=== PATIENT | female | born 1970 | race American Indian/Alaskan Native ===

== ENCOUNTER 2016-11-13 10:44 | Outpatient (CLI) | payer MEDICAID ==
--- NOTE | 2016-11-13 11:56 | Fluoroscopy Report ---
UPPER GI INDICATION: Dyspepsia. Lap Band in 2015. COMPARISON: 02/27/2015 upper GI report; images not retrievable at this time. FINDINGS: Upper GI performed. Patient swallowed thick and thin barium without any difficulty and also tolerated effervescent granules well. Claim Clerk view demonstrates normal appearance of the lap band and its connector tubing leading to the port overlying the L3 vertebral body in the midline. Nonobstructive bowel gas pattern. Colonic stool/possible constipation. Lower thoracic and lower lumbar degenerative changes. Bilateral SI joint sclerosis, more so along the iliac aspects. Small left pelvic phlebolith. Left iliac vein stent. Esophagus is normal in course and caliber without focal mucosal abnormality or abnormal peristalsis. No demonstratable hiatal hernia or gastroesophageal reflux. Prompt passage of contrast through the lap band into the opacified stomach without evidence of peptic ulcer disease. Normal duodenal bulb and C-loop. CONCLUSION: Normal upper GI exam, as described. Lap band correlation may also be obtained clinically. Thank you for the opportunity to participate in this patient's care.
== END 2016-11-13 10:45 | disposition home or self-care (01) ==
LOC: FLUORO 10:44
PROVIDERS: ATTEND Specialist
DX: K30 Functional dyspepsia (principal); I10 Essential (primary) hypertension
CPT/HCPCS: 74247

== ENCOUNTER 2017-01-04 06:14 | Day surgery (SDC) | payer MEDICAID ==
[2017-01-04] MEDS ORDERED: WATER FOR IRRIG STERILE IR ONE (07:33)
--- NOTE | 2017-01-04 07:39 | Anesthesia Day of Surgery ---
Anesthesia Day of Surgery - Day of Surgery Patient Examined: Yes Patient H&P Reviewed: Yes Patient is NPO: Yes Beta Blockers: Yes
--- NOTE | 2017-01-04 07:41 | Anesthesia Consultation ---
Anesthesia Consult and Med Hx Date of service: 01/04/17 - Airway Anesthetic Teeth Evaluation: Good ROM Head & Neck: Adequate Mental/Hyoid Distance: Adequate Mallampati Class: Class I Intubation Access Assessment: Good - Pulmonary Exam CTA: Yes - Cardiac Exam Cardiac Exam: RRR - Pre-Operative Health Status ASA Pre-Surgery Classification: ASA3 Proposed Anesthetic Plan: MAC - Pulmonary Hx Smoking: No Hx Sleep Apnea: Yes (doing sleep study on 01/08/17) - Cardiovascular System Hx Hypertension: Yes (metoprolol, losartan/HCTZ) Hx Coronary Artery Disease: Yes Hx Heart Attack/AMI: Yes (August 2016, last saw diesel motor mechanic a month ago for follow up) - Other Systems Hx Obesity: Yes
[2017-01-04] MEDS ORDERED: NACL 0.9% 1000 ML 1,000 ML IV SCH (08:00)
[2017-01-04 08:45] VITALS: BP 179/118
== END 2017-01-04 06:15 | disposition home or self-care (01) ==
LOC: GIO 06:14
PROVIDERS: ATTEND Surgery
DX: K21.9 Gastro-esophageal reflux disease without esophagitis (principal); I10 Essential (primary) hypertension; M06.9 Rheumatoid arthritis, unspecified; Z98.84 Bariatric surgery status; Z98.890 Other specified postprocedural states; Z79.899 Other long term (current) drug therapy; Z79.82 Long term (current) use of aspirin; Z88.8 Allergy status to other drugs, medicaments and biological substances; Z53.8 Procedure and treatment not carried out for other reasons
CPT/HCPCS: J7030

== ENCOUNTER 2017-01-22 06:37 | Day surgery (SDC) | payer MEDICAID ==
[2017-01-22] MEDS ORDERED: NACL 0.9% 1000 ML 1,000 ML IV SCH (08:00)
[2017-01-22] MEDS ORDERED: NORMODYNE IV ONE (08:02)
[2017-01-22] MEDS ORDERED: DIPRIVAN 10 MG/ML IV ONE (08:22)
[2017-01-22] MEDS ORDERED: APRESOLINE ONE (08:30)
--- NOTE | 2017-01-22 08:32 | Anesthesia Consultation ---
Anesthesia Consult and Med Hx Date of service: 01/22/17 - Airway Anesthetic Teeth Evaluation: Poor (missing rt upper canine) ROM Head & Neck: Adequate Mental/Hyoid Distance: Adequate Mallampati Class: Class II Intubation Access Assessment: Probably Good - Pulmonary Exam CTA: Yes - Cardiac Exam Cardiac Exam: RRR - Pre-Operative Health Status ASA Pre-Surgery Classification: ASA3 Proposed Anesthetic Plan: MAC - Pulmonary Hx Smoking: No Hx Sleep Apnea: Yes (on O2 2L at night, CPAP pending) - Cardiovascular System Hx Hypertension: Yes Hx Coronary Artery Disease: Yes Hx Heart Attack/AMI: Yes (08/18) Hx Percutaneous Transluminal Coronary Angioplasty (PTCA): No - Central Nervous System Hx Neuromuscular Disorder: Yes (RA) Hx Seizures: No CVA: No - Endocrine Hx Renal Disease: No Hx Liver Disease: No Hx Non-Insulin Dependent Diabetes: No - Other Systems Hx Obesity: Yes - Additional Comments Anesthesia Medical History Comments: NAC
--- NOTE | 2017-01-22 08:32 | Anesthesia Day of Surgery ---
Anesthesia Day of Surgery - Day of Surgery Patient Examined: Yes Patient H&P Reviewed: Yes Patient is NPO: Yes
--- NOTE | 2017-01-22 08:41 | Discharge Summary ---
Providers - Providers Date of discharge: 01/22/17 Attending physician: TREVOR RUIZ Hospitalization Condition: Good Procedures: EGD, biopsy Hospital course: 46 F had an EGD to evaluate her gastric band due to abdominal discomfort. Disposition: DC-01 TO HOME OR SELFCARE Core Measure Documentation - Palliative Care Palliative Care/ Comfort Measures: Not Applicable - Core Measures Any of the following diagnoses?: none Exam - Physical Exam Narrative exam: no change from preop - Constitutional Vitals: Temp Pulse Resp BP Pulse Ox 97.6 F 68 14 189/121 100 01/22/17 08:06 01/22/17 08:06 01/22/17 08:06 01/22/17 08:06 01/22/17 08:06 Plan Activity: no restrictions Diet: other (high protien)
--- NOTE | 2017-01-22 08:54 | Operative Report ---
Operative Report Operative Report: OPERATIVE REPORT - EGD DATE 01/22/17 SURGERY: Upper endoscopy. SURGEON: Mariluz Hurley M.D. LOCK AND DAM REPAIRER: n/a PROCEDURE: 1. EGD, 2. gastric mucosal biopsy PRE OP DX: epigastric pain POST OP DX: normal banded gastric anatomy TYPE OF ANESTHESIA: MAC. ESTIMATED BLOOD LOSS: None. COMPLICATIONS: None. SPECIMENS REMOVED: antral mucosal biopsy FINDINGS: 1. Small hiatal hernia. 2. Otherwise, normal esophagus, stomach and first portion of duodenum. INDICATIONS:INDICATION FOR PROCEDURE: Patient is a 46-year-old female with a history of gastric banding who complains of epigastric pain. she is here to be evaluated for the etiology of her pain. PROCEDURE DETAILS: After consent was reviewed, patient was taken back to the operating room where patient was placed in the left lateral decubitus position and a bite block was placed in the mouth. After a time-out was called, MAC anesthesia was initiated. I then passed the endoscope into her oropharynx, into her esophagus, visualized the entire esophagus, which was all within normal limits. Once past the z-line there was an expected proximal stomach narrowing from external compression of the band. I then visualized the stomach and the first portion of the duodenum and there were no abnormalities I could clearly visualize. I then retroflexed the scope in the stomach and visualized the underside of the banded portion and could so no signs of band erosion or other pathology. A cold biopsy was taken of the antral mucosal to send pathology to rule h. pylori, I then desufflated the stomach and removed the endoscope. Patient tolerated procedure well and was transferred to recovery room in good and stable condition.
[2017-01-22] MEDS ORDERED: XYLOCAINE MPF 2% ONE (09:00)
[2017-01-22 10:24] VITALS: BP 156/108
--- NOTE | 2017-01-22 10:59 | Post Anesthesia Evaluation ---
- Post Anesthesia Evaluation Patient Participated: Yes Airway Patent: Yes Stable Respiratory Function: Yes Nausea/Vomiting: No Temp > 96.8F: Yes Pain Manageable: Yes Adequeate Hydration: Yes Anesthesia Complications: No
== END 2017-01-22 06:38 | disposition home or self-care (01) ==
LOC: GIO 06:37
PROVIDERS: ATTEND Surgery
DX: K44.9 Diaphragmatic hernia without obstruction or gangrene (principal); I10 Essential (primary) hypertension; G47.33 Obstructive sleep apnea (adult) (pediatric); I25.10 Atherosclerotic heart disease of native coronary artery without angina pectoris; M06.9 Rheumatoid arthritis, unspecified; I25.2 Old myocardial infarction; E66.9 Obesity, unspecified; Z68.39 Body mass index [BMI] 39.0-39.9, adult; Z99.81 Dependence on supplemental oxygen; Z98.84 Bariatric surgery status; Z88.5 Allergy status to narcotic agent; Z88.8 Allergy status to other drugs, medicaments and biological substances; Z79.899 Other long term (current) drug therapy; Z79.82 Long term (current) use of aspirin
CPT/HCPCS: 43239; 88305; 88342; 96374; J0360; J2704; J7030

== ENCOUNTER 2017-05-17 20:50 | Inpatient (IN) | payer MEDICAID ==
[2017-05-17] MEDS ORDERED: ZOFRAN IV ONE (21:45)
[2017-05-17] MEDS ORDERED: MORPHINE IV ONE (21:45)
[2017-05-17] MEDS ORDERED: NITRO-BID 2% TP ONE (21:45)
[2017-05-17] MEDS ORDERED: ASPIRIN PO ONE (21:46)
--- NOTE | 2017-05-17 21:46 | Emergency Department Report ---
HPI - General Chief Complaint: Chest Pain Time Seen by Provider: 05/17/17 21:30 - HPI HPI: Room 7 The patient is a 46-year-old female presenting with a chief complaint chest pain. Patient states at approximately 17:00 she developed throbbing substernal chest pain associated with shortness of breath nausea vomiting. Patient denies diaphoresis. The patient states she has a history of fibromyalgia and took a new medication, Cymbalta, at 13:00. The patient states she was asymptomatic until approximately 17:00. The patient gives her pain a score of 9/10 Location: Chest, see above Duration: Intermittent since 17:00 Quality: Throbbing Severity: 9/10 Modifying factors: [see above] Context: [see above] Mode of transportation: Unknown ED Past Medical Hx - Past Medical History Hx Hypertension: Yes Hx Heart Attack/AMI: Yes (08/18) - Surgical History Additional Surgical History: lap band 2014, carpal tunnel surgery, bilateral tubal ligation, skin graft - Family History Family history: no significant - Social History Smoking Status: Never Smoker Substance Use Type: None (denies illicit drug use), Alcohol (occasional) - Medications Home Medications: Home Medications Medication Instructions Recorded Confirmed Last Taken Type Aspirin [Aspirin TAB] 325 mg PO QDAY 02/27/15 01/22/17 01/19/17 History Carvedilol [Coreg] 25 mg PO BID 02/27/15 01/22/17 1 Day Ago History ~02/26/15 Furosemide [Lasix TAB] 40 mg PO QDAY 02/27/15 01/22/17 1 Day Ago History ~02/26/15 Omeprazole [PriLOSEC] 20 mg PO QDAY 02/27/15 01/22/17 1 Day Ago History ~02/26/15 Potassium Chloride [K-Dur] 20 meq PO QDAY 02/27/15 01/22/17 1 Day Ago History ~02/26/15 Valsartan [Diovan] 40 mg PO DAILY 02/27/15 01/22/17 1 Day Ago History ~02/26/15 Hydrochlorothiazide 25 mg PO DAILY 01/04/17 01/22/17 01/20/17 History Losartan 100 mg PO DAILY 01/04/17 01/22/17 01/22/17 History Metoprolol 100 mg PO DAILY 01/04/17 01/22/1717 History ED Review of Systems ROS: Stated complaint: CP Other details as noted in HPI Constitutional: denies: diaphoresis Respiratory: shortness of breath Cardiovascular: chest pain Gastrointestinal: nausea, vomiting Neurological: headache Physical Exam - Physical Exam Vital Signs: Vital Signs 05/17/17 21:08 Temperature 98.1 F Pulse Rate 89 Respiratory 18 Rate Blood Pressure 203/120 O2 Sat by Pulse 100 Oximetry Physical Exam: GENERAL: The patient is well-developed well-nourished female lying on stretcher not appearing to be in acute distress. [] HEENT: Normocephalic. Atraumatic. Extraocular motions are intact. Patient has moist mucous membranes. NECK: Supple. Trachea midline CHEST/LUNGS: Clear to auscultation. There is no respiratory distress noted. HEART/CARDIOVASCULAR: Regular. There is no tachycardia. There is no gallop rub or murmur. ABDOMEN: Abdomen is soft, nontender. Patient has normal bowel sounds. There is no abdominal distention. SKIN: There is no rash. There is no edema. There is no diaphoresis. NEURO: The patient is awake, alert, and oriented. The patient is cooperative. The patient has normal speech MUSCULOSKELETAL: There is no evidence of acute injury. ED Course Vital Signs 05/17/17 21:08 Temperature 98.1 F Pulse Rate 89 Respiratory 18 Rate Blood Pressure 203/120 O2 Sat by Pulse 100 Oximetry ED Medical Decision Making - Lab Data Result diagrams: 05/17/17 Unknown 05/17/17 Unknown Laboratory Tests 05/17/17 05/17/17 Unknown Unknown WBC 7.9 RBC 7.02 H Hgb 15.8 H Hct 49.7 H MCV 71 L MCH 23 L MCHC 32 RDW 18.9 H Plt Count 670 H Lymph % (Auto) 22.8 [place] % (Auto) 8.7 H Eos % (Auto) 7.5 H Baso % (Auto) 1.3 Lymph # 1.8 [place] # 0.7 Eos # 0.6 H Baso # 0.1 Seg Neutrophils % 59.7 Seg Neutrophils # 4.7 Sodium 138 Potassium 4.7 Chloride 95.3 L Carbon Dioxide 28 Anion Gap 19 BUN 15 Creatinine 1.1 Estimated GFR > 60 BUN/Creatinine Ratio 14 Glucose 106 H Calcium 9.9 Total Creatine Kinase 66 CK-MB (CK-2) 1.3 CK-MB (CK-2) Rel Index 1.9 Troponin T < 0.010 - EKG Data -: EKG Interpreted by Me EKG shows normal: sinus rhythm Rate: normal - EKG Data When compared to previous EKG there are: no significant change Interpretation: nonspecific ST-T wave cullen (T-wave inversion in lead V2) - Radiology Data Radiology results: image reviewed (chest x-ray) interpreted by me: Chest x-ray-no focal infiltrates, no pneumothorax - Differential Diagnosis ACS, GERD, pericarditis Critical care attestation.: If time is entered above; I have spent that time in minutes in the direct care of this critically ill patient, excluding procedure time. ED Disposition Clinical Impression: Chest pain Disposition: DC-09 OP ADMIT IP TO THIS HOSP Is pt being admited?: Yes Does the pt Need Aspirin: Yes Condition: Fair Instructions: Chest Pain (ED) Referrals: PRIMARY CARE, [Primary Care Provider] - 3-5 Days Time of Disposition: 23:04 (hospitalist paged (Dr. Patricia Rzea))
[2017-05-17 22:02] LABS: Basophils % (Auto) 1.3 % (0.0-1.8); Eosinophils % (Auto) 7.5 % (0.0-4.3); Hematocrit 49.7 % (30.3-42.9); Hemoglobin 15.8 gm/dl (10.1-14.3); Mean Corpuscular HGB Conc 32 % (30-34); Mean Corpuscular Volume 71 fl (79-97); Platelet Count 670 K/mm3 (140-440); Red Blood Count 7.02 M/mm3 (3.65-5.03); Red Cell Distribution Width 18.9 % (13.2-15.2); White Blood Count 7.9 K/mm3 (4.5-11.0)
[2017-05-17 22:12] LABS: Mean Corpuscular Hemoglobin 23 pg (28-32)
[2017-05-17 22:20] LABS: Creatine Kinase MB 1.3 ng/mL (0.0-4.0)
[2017-05-17 22:21] LABS: Anion Gap 19 mmol/L; BUN/Creatinine Ratio 14; Blood Urea Nitrogen 15 mg/dL (7-17); Calcium 9.9 mg/dL (8.4-10.2); Carbon Dioxide 28 mmol/L (22-30); Chloride 95.3 mmol/L (98-107); Creatine Kinase 66 units/L (30-135); Glucose 106 mg/dL (65-100); Potassium 4.7 mmol/L (3.6-5.0); Sodium 138 mmol/L (137-145)
--- NOTE | 2017-05-17 22:38 | XRay Report ---
FINAL REPORT EXAM: XR CHEST 1V AP HISTORY: chest pain TECHNIQUE: Frontal portable chest x-ray Comparison: None FINDINGS: Heart size is upper limits normal. There are hazy bilateral ill-defined apparent infiltrates part of which may be related to the patient's body habitus. Costophrenic angles are sharp laterally. IMPRESSION: Possible ill-defined infiltrates versus incomplete penetration due to patient's body habitus. Recommend two view chest or at least a PA chest when able.
[2017-05-17] MEDS ORDERED: CATAPRES ONE (23:00)
[2017-05-17] MEDS ORDERED: CATAPRES PO ONE (23:02)
--- NOTE | 2017-05-17 23:16 | History and Physical Report ---
History of Present Illness Date of examination: 05/17/17 History of present illness: 46-year-old woman with a history of hypertension, hyperlipidemia, was brought to the emergency room for chest pain that started today. Pain is in the epigastric area, radiating to the left sneck, which he describes as a sharp pain, intermittent in nature lasting for 7 minutes, intensity 5/10, she cannot identify exacerbating or relieving factors. She denies nausea vomiting, diaphoresis, palpitation, shortness of breath Review Of Systems: Constitutional: no weight loss Ears, eyes, nose, mouth and throat: no nasal congestion, no nasal discharge, no sinus pressure, blurry vision, diplopia Neck: No neck pain or rigidity. Cardiovascular: no orthopnea, palpitations Respiratory: No cough Gastrointestinal:no abdominal pain, hematochezia Genitourinary : no dysuria, frequency , hematuria Musculoskeletal: no muscle ache Integumentary: no rash, no pruritis Neurological: no parathesias, focal weakness Endocrine: no cold or heat intolerance, no polyuria or polydipsia Hematologic/Lymphatic: no easy bruising, no easy bleeding, no gland swelling Allergic/Immunologic: no urticaria, no angioedema. PAST MEDICAL HISTORY:hypertension, hyperlipidemia PAST SURGICAL HISTORY: neck surgery FAMILY HISTORY: Hypertension SOCIAL HISTORY: Denies alcohol, tobacco, drugs Medications and Allergies Allergies Allergy/AdvReac Type Severity Reaction Status Date / Time hydrocodone Allergy Itching Verified 02/27/15 07:14 olmesartan medoxomil Allergy Swelling Verified 01/04/17 07:48 [From Benicar] lisinopril AdvReac Cough Verified 02/27/15 07:14 plant stanol cody AdvReac STIFF LIMBS Verified 01/02/17 11:40 [From Benecol] Home Medications Medication Instructions Recorded Confirmed Last Taken Type Aspirin [Aspirin TAB] 325 mg PO QDAY 02/27/15 05/18/17 1 Day Ago History ~05/17/17 Carvedilol [Coreg] 25 mg PO BID 02/27/15 05/18/17 1 Day Ago History ~05/17/17 Furosemide [Lasix TAB] 40 mg PO QDAY 02/27/15 05/18/17 1 Day Ago History ~05/17/17 Omeprazole [PriLOSEC] 20 mg PO QDAY 02/27/15 05/18/17 1 Day Ago History ~05/17/17 Potassium Chloride [K-Dur] 20 meq PO QDAY 02/27/15 05/18/17 1 Day Ago History ~05/17/17 Losartan [Cozaar] 100 mg PO QDAY 01/04/17 05/18/17 1 Day Ago History ~05/17/17 Exam - Constitutional Vitals: Temp Pulse Resp BP Pulse Ox 98.1 F 92 H 20 188/121 96 05/17/17 21:08 05/17/17 23:00 05/17/17 23:06 05/17/17 23:00 05/17/17 23:06 Results - Labs CBC & Chem 7: 05/18/17 04:46 05/18/17 04:46 Labs: Abnormal lab results 05/17/17 05/17/17 Range/Units Unknown Unknown RBC 7.02 H (3.65-5.03) M/mm3 Hgb 15.8 H (10.1-14.3) gm/dl Hct 49.7 H (30.3-42.9) % MCV 71 L (79-97) fl MCH 23 L (28-32) pg RDW 18.9 H (13.2-15.2) % Plt Count 670 H (140-440) K/mm3 [place] % (Auto) 8.7 H (0.0-7.3) % Eos % (Auto) 7.5 H (0.0-4.3) % Eos # 0.6 H (0.0-0.4) K/mm3 Chloride 95.3 L (98-107) mmol/L Glucose 106 H (65-100) mg/dL Assessment and Plan Assessment Atypical Chest pain Hypertension Hyperlipidemia Plan Admit to medicine Check cardiac enzymes, consult cardiology Start aspirin, morphine, dvt prophalaxis Continue appropiate outpatient medications
[2017-05-17] MEDS ORDERED: DULCOLAX PR PRN (23:32)
[2017-05-17] MEDS ORDERED: TYLENOL PO PRN (23:32)
[2017-05-17] MEDS ORDERED: MILK OF MAGNESIA PO PRN (23:32)
[2017-05-17] MEDS ORDERED: ZOFRAN IV PRN (23:32)
[2017-05-18 00:34] LABS: Creatine Kinase MB 1.3 ng/mL (0.0-4.0)
[2017-05-18 00:35] LABS: Creatine Kinase 59 units/L (30-135)
[2017-05-18] MEDS: MORPHINE IV PRN ×2 (00:58→05:11)
[2017-05-18 06:21] LABS: Hematocrit 47.2 % (30.3-42.9); Hemoglobin 14.3 gm/dl (10.1-14.3); Mean Corpuscular HGB Conc 30 % (30-34); Mean Corpuscular Hemoglobin 22 pg (28-32); Mean Corpuscular Volume 71 fl (79-97); Platelet Count 668 K/mm3 (140-440); Red Blood Count 6.66 M/mm3 (3.65-5.03); White Blood Count 6.1 K/mm3 (4.5-11.0)
[2017-05-18 06:33] LABS: Creatine Kinase MB 1.1 ng/mL (0.0-4.0)
[2017-05-18 06:37] LABS: Calcium 9.6 mg/dL (8.4-10.2); Chloride 97.2 mmol/L (98-107); Potassium 4.2 mmol/L (3.6-5.0)
[2017-05-18 06:41] LABS: Creatine Kinase 46 units/L (30-135)
[2017-05-18 07:28] LABS: Blastocytes % (Manual) 0 %
[2017-05-18 07:29] LABS: Anisocytosis 1+; Diff Status Complete; Hypochromasia 2+; Platelet Estimate Consistent w Auto
[2017-05-18] MEDS ORDERED: PROTONIX PO SCH (10:00)
[2017-05-18] MEDS ORDERED: COREG PO SCH (10:00)
[2017-05-18] MEDS ORDERED: LOVENOX SUB-Q SCH (10:00)
[2017-05-18] MEDS ORDERED: ASPIRIN PO SCH (10:00)
--- NOTE | 2017-05-18 11:23 | Consultation ---
History of Present Illness Consult date: 05/18/17 Requesting physician: ROOSEVELT HAWTHORNE Consult reason: chest pain History of present illness: The pt is a 46 YO female with a past medical history significant for HTN, HORTENCIA, RA, peripheral neuropathy, fibromyalgia. She is followed in our office by Dr. Leach. She presented with c/o palpitations, nausea and vomiting after taking Cymbalta. She was feeling quite well yesterday and was out with her when she took the Cymbalta around 1:00PM. Around 5PM, she noted the onset of her symptoms and decided to seek medical attention. She is concerned her symptoms were side effects of the Cymbalta. She denies any chest pain, diaphoresis, dizziness or syncope. On evaluation, she states that all of her symptoms have resolved and she is back to her usual state of health. LHC done 04/2013 showed no significant coronary artery disease, normal EF of 55% . Lexiscan MPI stress test done 08/2016 was negative for ischemia, EF 61%. Echo done 07/2015 showed EF 55-60%, impaired relaxation. Past History Past Medical History: hypertension, other (RA; fibromyalgia; HORTENCIA) Social history: , lives with family. denies: smoking, alcohol abuse, prescription drug abuse Medications and Allergies Allergies Allergy/AdvReac Type Severity Reaction Status Date / Time hydrocodone Allergy Itching Verified 02/27/15 07:14 olmesartan medoxomil Allergy Swelling Verified 01/04/17 07:48 [From Benicar] lisinopril AdvReac Cough Verified 02/27/15 07:14 plant stanol cody AdvReac STIFF LIMBS Verified 01/02/17 11:40 [From Benecol] Home Medications Medication Instructions Recorded Confirmed Last Taken Type Aspirin [Aspirin TAB] 325 mg PO QDAY 02/27/15 05/18/17 1 Day Ago History ~05/17/17 Carvedilol [Coreg] 25 mg PO BID 02/27/15 05/18/17 1 Day Ago History ~05/17/17 Furosemide [Lasix TAB] 40 mg PO QDAY 02/27/15 05/18/17 1 Day Ago History ~05/17/17 Omeprazole [PriLOSEC] 20 mg PO QDAY 02/27/15 05/18/17 1 Day Ago History ~05/17/17 Potassium Chloride [K-Dur] 20 meq PO QDAY 02/27/15 05/18/17 1 Day Ago History ~05/17/17 Valsartan [Diovan] 40 mg PO DAILY 02/27/15 05/18/17 1 Day Ago History ~05/17/17 Hydrochlorothiazide [HCTZ] 25 mg PO DAILY 01/04/17 05/18/17 1 Day Ago History ~05/17/17 Losartan [Cozaar] 100 mg PO QDAY 01/04/17 05/18/17 1 Day Ago History ~05/17/17 Metoprolol [Lopressor] 100 mg PO DAILY 01/04/17 05/18/17 1 Day Ago History ~05/17/17 Active Meds: Active Medications Acetaminophen (Tylenol) 650 mg PO Q4H PRN PRN Reason: Pain MILD(1-3)/Fever >100.5/WILLS Aspirin (Aspirin) 325 mg PO QDAY [facility] Bisacodyl (Dulcolax) 10 mg [place] QDAY PRN PRN Reason: [place] [facility] [place] Carvedilol (Coreg) 25 mg PO BID [facility] Enoxaparin Sodium (Lovenox) 40 mg SUB-Q QDAY [facility] Losartan Potassium (Cozaar) 100 mg PO DAILY [facility] Magnesium Hydroxide (Milk Of Magnesia) 30 ml PO Q4H PRN PRN Reason: Constipation Metoprolol Tartrate (Lopressor) 100 mg PO DAILY [facility] Morphine Sulfate (Morphine) 2 mg IV Q4H PRN PRN Reason: Pain, Moderate (4-6) Last Admin: 05/18/17 05:11 Dose: 2 mg Ondansetron HCl (Zofran) 4 mg IV Q8H PRN PRN Reason: N/V unrelieved by Reglan Pantoprazole Sodium (Protonix) 20 mg PO QDAY [facility] Review of Systems Constitutional: no weight loss, no weight gain, no fever, no chills, no sweats Ears, nose, mouth and throat: no ear pain, no nose pain, no sinus pressure, no sinus pain Cardiovascular: palpitations, no chest pain, no orthopnea, no rapid/irregular heart beat, no edema, no syncope, no lightheadedness, no shortness of breath, no dyspnea on exertion, no paroxysmal nocturnal dyspnea, no leg edema, no decreased exercise tolerance Respiratory: no cough, no shortness of breath, no dyspnea on exertion, no congestion, no wheezing, no pain on inspiration Gastrointestinal: nausea, vomiting, no abdominal pain, no diarrhea, no constipation, no change in bowel habits Genitourinary Female: no pelvic pain, no flank pain, no dysuria, no urinary frequency, no urgency Musculoskeletal: no neck stiffness, no neck pain, no shooting arm pain, no arm numbness/tingling, no low back pain, no shooting leg pain, no leg numbness/ tingling, no redness of joints Integumentary: no rash, no pruritis, no redness, no sores, no wounds Neurological: no head injury, no paralysis, no weakness, no parathesias, no numbness, no tingling, no seizures, no syncope Psychiatric: anxiety Endocrine: no cold intolerance, no heat intolerance Hematologic/Lymphatic: no easy bruising, no easy bleeding, no lymphadenopathy Allergic/Immunologic: no urticaria, no wheezing, no persistent infections Physical Examination Vital Signs Temp Pulse Resp BP Pulse Ox 98.1 F 89 18 203/120 100 05/17/17 21:08 05/17/17 21:08 05/17/17 21:08 05/17/17 21:08 05/17/17 21:08 General appearance: no acute distress HEENT: Positive: PERRL, Normocephaly, Mucus Membranes Moist Neck: Positive: neck supple, trachea midline Cardiac: Positive: Reg Rate and Rhythm, S1/S2 Lungs: Positive: clear to auscultation Neuro: Positive: Grossly Intact, Cranial Nerve 2-12 Intact Abdomen: Positive: Unremarkable, Soft, Active Bowel Sounds. Negative: Tender Skin: Positive: Clear. Negative: Rash, Wound Musculoskeletal: No Fluid Collection, No Pain, Normal Range of Motion Extremities: Absent: edema Results 05/18/17 04:46 05/18/17 04:46 Cardiac Enzymes 05/17/17 05/17/17 05/18/17 Range/Units 23:43 Unknown 04:46 CK-MB (CK-2) 1.3 1.3 1.1 (0.0-4.0) ng/mL CBC 05/17/17 05/18/17 Range/Units Unknown 04:46 WBC 7.9 6.1 (4.5-11.0) K/mm3 RBC 7.02 H 6.66 H (3.65-5.03) M/mm3 Hgb 15.8 H 14.3 (10.1-14.3) gm/dl Hct 49.7 H 47.2 H (30.3-42.9) % Plt Count 670 H 668 H (140-440) K/mm3 Lymph # 1.8 (1.2-5.4) K/mm3 [place] # 0.7 (0.0-0.8) K/mm3 Eos # 0.6 H (0.0-0.4) K/mm3 Baso # 0.1 (0.0-0.1) K/mm3 Comprehensive Metabolic Panel 05/17/17 05/18/17 Range/Units Unknown 04:46 Sodium 138 141 (137-145) mmol/L Potassium 4.7 4.2 (3.6-5.0) mmol/L Chloride 95.3 L 97.2 L (98-107) mmol/L Carbon Dioxide 28 29 (22-30) mmol/L BUN 15 17 (7-17) mg/dL Creatinine 1.1 1.4 H (0.7-1.2) mg/dL Glucose 106 H 98 (65-100) mg/dL Calcium 9.9 9.6 (8.4-10.2) mg/dL - Imaging and Cardiology Echo: report reviewed (08/2016 was negative for ischemia, EF 61%. ) Cardiac cath: report reviewed (04/2013 showed no significant coronary artery disease, normal EF of 55%) EKG: report reviewed, image reviewed EKG interpretations - Telemetry EKG Rhythm: Sinus Rhythm - EKG Sinus rhythms and dysrhythmias: sinus rhythm Assessment and Plan Assessment: Palpitations / nausea and vomiting - resolved; suspect secondary to Cymbalta HTN HORTENCIA RA Peripheral neuropathy Fibromyalgia Plan: No current indication for any further cardiac testing at this time given recent stress test and echo. Pt denies chest pain. AMI ruled out. Currently stable cardiac status. Pt may discharge home from cardiology standpoint. Follow up in our [place] office with Dr. Leach with in 1-2 weeks of hospital discharge ([phone]). Assessment and plan reviewed with pt at bedside. The patient has been seen in conjunction with Dr. Morales who agrees with the assessment and plan of care.
[2017-05-18] MEDS: COZAAR PO SCH ×2 (12:40→12:44)
[2017-05-18] MEDS: LOPRESSOR PO SCH ×2 (12:41→12:44)
--- NOTE | 2017-05-18 13:20 | Discharge Summary ---
Providers - Providers Date of Admission: 05/17/17 23:32 Date of discharge: 05/18/17 Attending physician: ALEX VALENCIA 05/17/17 23:32 Consult to Physician [CONS] Routine Consulting Provider: NIKIA CARPENTER Reason For Exam: cp Place consult to:: [facility] Notified:: y Comment:: added to list Primary care physician: YARD SUPERVISOR Hospitalization Reason for admission: left-sided chest pain Condition: Poor Pertinent studies: LHC done 04/2013 showed no significant coronary artery disease, normal EF of 55% . Lexiscan MPI stress test done 08/2016 was negative for ischemia, EF 61%. Echo done 07/2015 showed EF 55-60%, impaired relaxation. Hospital course: 46-year-old female patient with significant history of hypertension and obstructive sleep apnea. Rheumatoid arthritis. For neuropathy and fibromyalgia Admitted through emergency room with left-sided chest pain Patient admitted to hospital symptomatically managed, evaluated by cardiology However patient had negative heart In 2012 with ejection fraction of 55%, Lexiscan was negative with normal ejection fraction 08/2016 Cardiology optimizing medications, and did not plan any further workup Date of discharge patient was comfortably no new complaints vital signs stable\ Physical examination is unremarkable Patient is hemodynamically and clinically stable at time of discharge Discharge diagnoses; -Noncardiac chest pain; probably secondary to costochondritis -Hypertension -Obstructive sleep apnea -Rheumatoid arthritis -Patient neuropathy -Fibromyalgia -Palpitations -Acute gastritis Disposition: - TO HOME OR SELFCARE Time spent for discharge: 33 min Core Measure Documentation - Palliative Care Palliative Care/ Comfort Measures: Not Applicable - Core Measures Any of the following diagnoses?: none Exam - Constitutional Vitals: Temp Pulse Resp BP Pulse Ox 97.8 F 70 99 H 94/56 99 05/18/17 10:49 05/18/17 10:49 05/18/17 10:49 05/18/17 10:49 05/18/17 10:49 General appearance: Present: no acute distress, well-nourished - EENT Eyes: Present: PERRL, EOM intact - Neck Neck: Present: supple, normal ROM - Respiratory Respiratory effort: normal Respiratory: negative: rales, rhonchi, wheezing - Cardiovascular Rhythm: regular Heart Sounds: Present: S1 & S2 - Extremities Extremities: no ischemia, No edema - Abdominal General gastrointestinal: Present: soft, non-tender, non-distended, normal bowel sounds - Integumentary Integumentary: Present: clear, warm - Musculoskeletal Musculoskeletal: strength equal bilaterally - Psychiatric Psychiatric: appropriate mood/affect, cooperative - Neurologic Neurologic: CNII-XII intact, moves all extremities Plan Activity: no restrictions Diet: other (cardiac diet) Additional Instructions: f/u private saw filer if you have recurrent chest pain or shortness of breath or go to ER. Advised to comply with medications and diet. Advised diet modification , exercise as tolerated and weight reduction and medically stable Follow up with: PRIMARY CARE, [Primary Care Provider] - 3-5 Days
[2017-05-18 13:42] VITALS: BP 92/52
== END 2017-05-18 16:05 | disposition home or self-care (01) | DRG 206 ==
LOC: ED 20:50 → 4A 23:32
PROVIDERS: ADMIT Internal Medicine; ATTEND Internal Medicine
DX: M94.0 Chondrocostal junction syndrome [Tietze] (principal); R00.2 Palpitations; K29.00 Acute gastritis without bleeding; I10 Essential (primary) hypertension; M06.9 Rheumatoid arthritis, unspecified; G62.9 Polyneuropathy, unspecified; G47.33 Obstructive sleep apnea (adult) (pediatric); E78.5 Hyperlipidemia, unspecified; I25.2 Old myocardial infarction; Z98.51 Tubal ligation status; Z72.89 Other problems related to lifestyle; Z79.82 Long term (current) use of aspirin; Z79.899 Other long term (current) drug therapy; Z88.5 Allergy status to narcotic agent; Z88.8 Allergy status to other drugs, medicaments and biological substances; Z82.49 Family history of ischemic heart disease and other diseases of the circulatory system; M79.7 Fibromyalgia
CPT/HCPCS: 36415; 71010; 80048; 82550; 82553; 84484; 85007; 85025; 93005; 93010; 94760; 96374; 96375; 99285; J1650; J2270; J2405

== ENCOUNTER 2019-08-13 10:17 | Outpatient (CLI) | payer MEDICAID ==
--- NOTE | 2019-08-13 11:56 | Fluoroscopy Report ---
UPPER GI HISTORY: K30 FUNCTIONAL DYSPEPSIA. TECHNIQUE: Single and double contrast barium technique utilized to evaluate the esophagus, stomach, and duodenal C-loop. FINDINGS: To begin the exam, swallowing was evaluated in the lateral position under direct fluorosco py. Swallowing was normal. A lap band device is in good position in the left upper quadrant. There is easy passage of the contra st agent through the lap band device. No evidence for slippage or erosion. No obstruction. No mucosal irregularity, mass, mass effect, or critical stenosis. There were no abnormal tertiary c ontractions as seen with dysmotility. No gastroesophageal reflux. IMPRESSION: Unremarkable exam. No abnormality with the lap band device is detected. Fluoroscopic time: 1.1 minutes Number of fluoroscopic images: 30 Signer Name: Akash Morrow Jr, MD Signed: 08/13/2019 11:52 AM Workstation Name: [id number]
== END 2019-08-13 10:18 | disposition home or self-care (01) ==
LOC: FLUORO 10:17
PROVIDERS: ATTEND Surgery
DX: K30 Functional dyspepsia (principal)
CPT/HCPCS: 74246

== ENCOUNTER 2020-06-29 11:57 | Outpatient (CLI) | payer MEDICAID ==
[2020-06-29 12:33] LABS: Hematocrit 44.5 % (30.3-42.9); Hemoglobin 14.4 gm/dl (10.1-14.3); Mean Corpuscular HGB Conc 32 % (30-34); Mean Corpuscular Volume 79 fl (79-97); Platelet Count 255 K/mm3 (140-440); Red Blood Count 5.61 M/mm3 (3.65-5.03)
[2020-06-29 13:11] LABS: Anisocytosis 1+; Hypochromasia 1+; Ovalocytes 1+; Poikilocytosis 1+; Total Cells Counted 100
[2020-06-29 13:12] LABS: Large Platelets Few; Platelet Estimate Consistent w Auto
[2020-06-29 13:16] LABS: Albumin 4.2 g/dL (3.9-5); Calcium 9.4 mg/dL (8.4-10.2); Chol/HDL Ratio 2.02 %
== END 2020-06-29 11:58 | disposition home or self-care (01) ==
LOC: LAB 11:57
PROVIDERS: ATTEND Surgery
DX: E66.01 Morbid (severe) obesity due to excess calories (principal); K30 Functional dyspepsia; E11.9 Type 2 diabetes mellitus without complications
CPT/HCPCS: 36415; 80053; 80061; 82306; 82607; 82728; 83036; 83550; 84425; 84443; 85007; 85025

== ENCOUNTER 2021-09-05 11:00 | Outpatient (CLI) | payer MEDICAID | END 2021-09-05 11:01 | disposition home or self-care (01) | LOC: SLR 11:00 | PROVIDERS: ATTEND Surgery | DX: G47.30 Sleep apnea, unspecified (principal) | CPT/HCPCS: 95810 ==

== ENCOUNTER 2021-09-22 11:12 | Outpatient (CLI) | payer MEDICAID ==
--- NOTE | 2021-09-22 14:23 | Fluoroscopy Report ---
UPPER GI INDICATION / CLINICAL INFORMATION: K30 FUNCTIONAL DYSPEPSIA TECHNIQUE: Upper GI exam was performed with double contrast barium and air. COMPARISON: None available FINDINGS: MOTILITY: Tertiary contractions were identified. MUCOSA: No significant abnormality. MASS: None. STRICTURE: None. HIATAL HERNIA: Several of the images demonstrate the gastric cardia above the diaphragm suggesting a sliding hiatal hernia. REFLUX: Reflux is noted to the jonh. STOMACH: Patient status post lap band procedure. The majority of the stomach is distal to the lap ban d with only a small portion of the gastric cardia superior to the lap band. DUODENUM: No significant abnormality. ADDITIONAL FINDINGS: Vocational Training Instructor view demonstrates abnormal orientation of the lap band suggesting slippage . Fluoroscopy Time: 5 minutes. Fluoroscopy Images: 22. IMPRESSION: 1. Abnormal orientation of the lap band suggesting slippage. Additionally, during fluoroscopic examin ation the majority of the stomach is below the lap band. Several images demonstrate the gastric cardi a above the diaphragm suggesting a sliding hiatal hernia. Additionally, there is moderate reflux with tertiary contractions and delayed emptying of contrast from the distal esophagus into the stomach. Signer Name: Kostas North DO Signed: 09/22/2021 2:19 PM Workstation Name: [id number]
== END 2021-09-22 11:13 | disposition home or self-care (01) ==
LOC: FLUORO 11:12
PROVIDERS: ATTEND Surgery
DX: K21.9 Gastro-esophageal reflux disease without esophagitis (principal); K30 Functional dyspepsia
CPT/HCPCS: 74246

== ENCOUNTER 2021-10-18 07:29 | Day surgery (SDC) | payer MEDICAID ==
[~2021-10-18 07:29] MED LIST: SODIUM CHLORIDE 0.9% 1000 ML 1,000 ML IV SCH
--- NOTE | 2021-10-18 08:14 | Anesthesia Day of Surgery ---
Anesthesia Day of Surgery - Day of Surgery Patient Examined: Yes Patient H&P Reviewed: Yes Patient is NPO: Yes
--- NOTE | 2021-10-18 08:15 | Anesthesia Consultation ---
Anesthesia Consult and Med Hx Date of service: 10/18/21 - Airway Anesthetic Teeth Evaluation: Good ROM Head & Neck: Adequate Mental/Hyoid Distance: Adequate Mallampati Class: Class III Intubation Access Assessment: Good - Pulmonary Exam CTA: Yes - Cardiac Exam Cardiac Exam: RRR - Pre-Operative Health Status ASA Pre-Surgery Classification: ASA3 Proposed Anesthetic Plan: MAC - Pulmonary Hx Smoking: No Hx Asthma: Yes COPD: No Hx Pneumonia: Yes Hx Sleep Apnea: Yes (on O2 2L at night, CPAP pending) - Cardiovascular System Hx Hypertension: Yes Hx Coronary Artery Disease: Yes Hx Heart Attack/AMI: Yes (08/18) Hx Percutaneous Transluminal Coronary Angioplasty (PTCA): No - Central Nervous System Hx Neuromuscular Disorder: Yes (RA) Hx Seizures: No CVA: No - Endocrine Hx Renal Disease: No Hx End Stage Renal Disease: No Hx Liver Disease: No Hx Non-Insulin Dependent Diabetes: No - Other Systems Hx Obesity: Yes
[2021-10-18] MEDS ORDERED: propofoL 200 MG/20 ML VIAL IV ONE (09:12)
[2021-10-18] MEDS ORDERED: LIDOCAINE MPF (2%) 20 MG/1 ML VIAL 5 ML ONE (09:27)
--- NOTE | 2021-10-18 10:16 | Operative Report ---
Operative Report Operative Report: DATE: 10/18/2021 SURGERY: Upper endoscopy. SURGEON: Mariluz Hurley M.D. PROCEDURE: EGD with biopsy PRE OP DX: morbid obesity, GERD, hx of gastric banding POST OP DX: morbid obesity, GERD, hx of gastric banding TYPE OF ANESTHESIA: MAC. ESTIMATED BLOOD LOSS: None. COMPLICATIONS: None. SPECIMENS REMOVED: antral biopsy FINDINGS: 1. Normal banded gastric anatomy 2. mild antral gastritis INDICATIONS:INDICATION FOR PROCEDURE: Patient is a 51-year-old female with a long history of morbid obesity. He has a hx of gastric banding and increased reflux. He is having EGD to evaluate his stomach anatomy prior to planning switching to another bariatric procedure. PROCEDURE DETAILS: After consent was reviewed, patient was taken back to the operating room where patient was placed in the left lateral decubitus position and a bite block was placed in the mouth. After a time-out was called, MAC anesthesia was initiated. I then passed the endoscope into his oropharynx, into her esophagus, visualized the entire esophagus, which was all within normal limits. Z-line was noted to about 38cm from incisors. A small food bolus was noted proximal to the band. There was an expected proximal stomach narrowing from external compression from the gastric band. This lumen was traversed without any difficulty. I then visualized the stomach and the first portion of the duodenum and there were no abnormalities I could clearly visualize. A cold forceps biopsy of the antrum was taken and will be sent to pathology to evaluate for H.pylori. I then retroflexed the scope in the stomach and visualized the underside of the band. There were no signs of band erosion or malposition. I then desufflated the stomach and removed the endoscope. Patient tolerated procedure well and was transferred to recovery room in good and stable condition.
--- NOTE | 2021-10-18 10:17 | Discharge Summary ---
Providers - Providers Date of Admission: 10/18/2021 Date of discharge: 10/18/21 Attending physician: TREVOR RUIZ MD Primary care physician: NORIS GUERRERO Hospitalization Reason for admission: pre-op egd Condition: Good Procedures: egd with bx Hospital course: Pt presented for a pre-op EGD as part of planning for up coming bariatric surgery. Procedure was uneventful and pt recovered well and was discharged to home. Disposition: 01 HOME / SELF CARE / HOMELESS Final Discharge Diagnosis (Prints w/discharge instructions): morbid obesity, gerd, hx bariatric surgery Core Measure Documentation - Palliative Care Palliative Care/ Comfort Measures: Not Applicable - Core Measures Any of the following diagnoses?: none Exam - Physical Exam Narrative exam: unchanged from pre-op Plan Activity: advance as tolerated Diet: low carbohydrate Follow up with: NORIS GUERRERO MD [Primary Care Provider] - 7 Days
--- NOTE | 2021-10-18 15:05 | Post Anesthesia Evaluation ---
- Post Anesthesia Evaluation Patient Participated: Yes Airway Patent: Yes Stable Respiratory Function: Yes Nausea/Vomiting: No Temp > 96.8F: Yes Pain Manageable: Yes Adequeate Hydration: Yes Anesthesia Complications: No Block Receding Appropriately: Not Applicable Patient on Ventilator: No
[2021-10-18 17:41] VITALS: BP 129/84
== END 2021-10-18 11:30 | disposition home or self-care (01) ==
LOC: GIO 07:29
PROVIDERS: ATTEND Surgery
DX: K21.9 Gastro-esophageal reflux disease without esophagitis (principal); E66.01 Morbid (severe) obesity due to excess calories; K29.70 Gastritis, unspecified, without bleeding; H40.9 Unspecified glaucoma; I25.10 Atherosclerotic heart disease of native coronary artery without angina pectoris; J45.909 Unspecified asthma, uncomplicated; G47.30 Sleep apnea, unspecified; M06.9 Rheumatoid arthritis, unspecified; Z87.19 Personal history of other diseases of the digestive system; Z88.8 Allergy status to other drugs, medicaments and biological substances; Z79.899 Other long term (current) drug therapy; Z79.82 Long term (current) use of aspirin; Z87.01 Personal history of pneumonia (recurrent); Z90.710 Acquired absence of both cervix and uterus; Z98.890 Other specified postprocedural states; Z68.39 Body mass index [BMI] 39.0-39.9, adult
CPT/HCPCS: 43239; 88305; 88342; J2704; J7030

== ENCOUNTER 2021-11-07 05:00 | Inpatient (IN) | payer MEDICAID ==
[2021-10-28 12:48] LABS: Hematocrit 46.2 % (30.3-42.9); Hemoglobin 15.1 gm/dl (10.1-14.3); Mean Corpuscular HGB Conc 33 % (30-34); Mean Corpuscular Volume 77 fl (79-97); Platelet Count 944 K/mm3 (140-440); Red Blood Count 6.01 M/mm3 (3.65-5.03); Red Cell Distribution Width 18.8 % (13.2-15.2)
[2021-10-28 13:16] LABS: Albumin 4.2 g/dL (3.9-5); Calcium 10.2 mg/dL (8.4-10.2)
--- NOTE | 2021-10-28 14:20 | Anesthesia Consultation ---
Anesthesia Consult and Med Hx Date of service: 11/07/21 - Airway Anesthetic Teeth Evaluation: Good ROM Head & Neck: Adequate Mental/Hyoid Distance: Adequate Mallampati Class: Class III Intubation Access Assessment: Possibly Difficult - Pulmonary Exam CTA: Yes - Cardiac Exam Cardiac Exam: RRR - Pre-Operative Health Status ASA Pre-Surgery Classification: ASA3 Proposed Anesthetic Plan: General - Pulmonary Hx Smoking: No Hx Asthma: Yes (PFTs on chart, started on INH by trial mgr) Hx Respiratory Symptoms: No Hx Sleep Apnea: No (neg sleep study) - Cardiovascular System Hx Hypertension: Yes Hx Coronary Artery Disease: Yes (recent neg ST w/ normal EF) Hx Heart Attack/AMI: Yes (2017 w/ med management only) Hx Percutaneous Transluminal Coronary Angioplasty (PTCA): No Hx Cardia Arrhythmia: No - Central Nervous System Hx Neuromuscular Disorder: No (fibromyalgia) CVA: No Hx Back Pain: Yes (sciatic nerve pain) - Gastrointestinal Hx Gastroesophageal Reflux Disease: Yes - Endocrine Hx Renal Disease: Yes (CKD, follows with consulting application engineer) Hx Liver Disease: No Hx Insulin Dependent Diabetes: No Hx Non-Insulin Dependent Diabetes: No Hx Thyroid Disease: No - Hematic Hx Anemia: No (polycythemia vera; last dose ASA 10/24/21.) - Other Systems Hx Obesity: Yes (BMI 38) - Additional Comments Anesthesia Medical History Comments: No hx anesthetic complications. Preop cardiac, pulmonology, and medical evals on chart reviewed. Most recent hematology office note 07/2020 reviewed: patient was to continue w/ ASA, hydrea w/ close follow up for possible theraopuetic phlebotomy. She has not followed up, is no longer taking hydrea, and labs drawn today show elevated H/H w/ signficant thrombocytopenia. Patient instructed that she will need eval and optimization by agricultural research director prior to surgery. Surgeon's office notified.
[2021-11-07] MEDS ORDERED: GABAPENTIN 500 MG/10 ML ORAL LIQD PO NR (06:00)
[2021-11-07] MEDS ORDERED: ceFAZolin/Water 2 GM/20 ML 2 GM/20 ML SYRINGE IV NR (06:00)
[2021-11-07] MEDS ORDERED: ENOXAPARIN 40 MG/0.4 ML INJ SUB-Q NR (06:00)
[2021-11-07] MEDS ORDERED: methOCARBAMOL 1,000 MG in SODIUM CHLORIDE 0.9% 250ML 250 ML IV SCH (06:00)
[2021-11-07] MEDS ORDERED: metroNIDAZOLE/NS 500 MG/100 ML 500 MG/100 ML BAG IV NR (06:00)
[2021-11-07] MEDS ORDERED: ALBUTEROL 2.5 MG/3 ML NEBU IH PRN (06:00)
[2021-11-07] MEDS ORDERED: MIDAZOLAM 2 MG/2 ML INJ IV NR (06:00)
[2021-11-07] MEDS ORDERED: SCOPOLAMINE TRANSDERMAL PATCH 72 HR TD ONE (06:11)
[2021-11-07] MEDS ORDERED: WATER FOR IRRIG STERILE 250 ML BOTTLE IR ONE (07:27)
--- NOTE | 2021-11-07 07:28 | Anesthesia Day of Surgery ---
Anesthesia Day of Surgery - Day of Surgery Patient Examined: Yes Patient H&P Reviewed: Yes Patient is NPO: Yes
[2021-11-07] MEDS ORDERED: fentaNYL 100 MCG/2 ML INJ IV PRN (07:29)
[2021-11-07] MEDS ORDERED: ONDANSETRON 4 MG/2 ML INJ IV PRN ×2 (07:29→13:18)
[2021-11-07] MEDS: LACTATED RINGERS 1,000 ML IV SCH ×2 (07:30→16:23)
[2021-11-07] MEDS: ACETAMINOPHEN IV 1,000 MG/100 ML BOTTLE IV NR ×2 (07:35→21:13)
[2021-11-07] MEDS ORDERED: MAGNESIUM SULFATE 4 GM/100 ML BAG IV ONE (07:35)
[2021-11-07] MEDS ORDERED: ONDANSETRON 4 MG/2 ML INJ ONE (07:36)
[2021-11-07] MEDS ORDERED: ROCURONIUM 50 MG/5 ML INJ IV ONE ×2 (07:36→09:10)
[2021-11-07] MEDS ORDERED: LIDOCAINE MPF (2%) 20 MG/1 ML VIAL 5 ML ONE (07:36)
[2021-11-07] MEDS ORDERED: KETAMINE/STERILE WATER 50 MG/ML SYRINGE ONE (07:37)
[2021-11-07] MEDS ORDERED: SODIUM CHLORIDE P/F VIAL 10 ML 10 ML ONE (07:38)
[2021-11-07] MEDS ORDERED: LIDOCAINE 2%/EPINEPHRINE 1:200,000 VIAL (20 ML) INFILTRATI ONE (07:47)
[2021-11-07] MEDS ORDERED: BUPIVACAINE/PF (0.25%) 2.5 MG/ML 30 ML VIAL INFILTRATI ONE ×2 (07:48→10:37)
[2021-11-07] MEDS ORDERED: PHENYLEPHRINE/NS 1,000 MCG/10 ML SYRINGE (OR USE) IV ONE (08:50)
[2021-11-07] MEDS ORDERED: ePHEDrine SULFATE 50 MG/1 ML INJ ONE (09:33)
[2021-11-07] MEDS ORDERED: SCOPOLAMINE TRANSDERMAL PATCH 72 HR TD SCH (10:00)
[2021-11-07] MEDS ORDERED: LIDOCAINE 2%/EPINEPHRINE 1:100,000 VIAL (20 ML) INFILTRATI ONE (10:37)
[2021-11-07] MEDS ORDERED: SODIUM CHLORIDE 0.9% IRRIG SOLN 2000 ML IR ONE (10:38)
[2021-11-07] MEDS ORDERED: LACTATED RINGERS 1,000 ML ONE (11:26)
[2021-11-07] MEDS ORDERED: propofoL 200 MG/20 ML VIAL IV ONE (11:57)
[2021-11-07] MEDS ORDERED: hydrALAZINE 20 MG/1 ML INJ IV PRN (13:18)
[2021-11-07] MEDS ORDERED: METOCLOPRAMIDE 10 MG/2 ML INJ IV PRN (13:18)
[2021-11-07] MEDS ORDERED: MORPHINE 2 MG/1 ML INJ IV PRN (13:18)
[2021-11-07] MEDS ORDERED: LACTATED RINGERS 1,000 ML IV SCH (13:30)
[2021-11-07] MEDS ORDERED: SIMETHICONE 40 MG/0.6 ML ORAL DROP 30ML PO ONE (13:52)
--- NOTE | 2021-11-07 13:56 | Operative Report ---
Operative Report Operative Report: DATE OF PROCEDURE: 11/07/2021 SURGEON: Mariluz Hurley M.D. BUSINESS SUPPORT ASSOCIATE: Maggy Chávez CSA MD PREOPERATIVE DIAGNOSIS: GERD, hx of gastric banding POSTOPERATIVE DIAGNOSES: GERD, hx of gastric banding PROCEDURES PERFORMED: 1. Laparoscopic gastric bypass. 2. Laparoscopic removal of gastric banding system 3. Extensive lysis of adhesions ANESTHESIA: General endotracheal tube intubation, TAP block SPECIMENS: gastric band system ESTIMATED BLOOD LOSS: Less than 20 mL. FINDINGS: Dense scar tissue around gastric band COMPLICATIONS: None immediate INDICATION: Ms. Krueger is a 51-year-old female with history of lap gastric banding for the treatment of morbid obesity. Pt has had GERD that is not improved with PPI. she was also found to have her band was slipped out of its optimal position. She signed informed consent and expressed understanding of risks and benefits. DESCRIPTION OF PROCEDURE: Patient was brought to the OR suite, laid in supine position. Bilateral lower extremity SCDs were placed. General anesthesia was induced via successful endotracheal tube intubation. Patient's abdomen was prepped and draped in sterile fashion. A veress needle was used to insuflate the abdomen to a pressure of 15 mmHg in the left subcostal region. Using Optiview technique, a 5- mm trocar was placed into the abdominal cavity under direct vision just superior and to the left of the umbilicus. There was noted to be no gross injury to any intraabdominal structures. 15 mm in the right mid abdomen mid clavicular line and three 5-mm trocars in the right upper quadrant, epigastric areas were placed under direct visualization. The band was encountered at the proximal stomach and adhesed to the underside liver. Using electrocautery and harmonic scalpel the surrounding adhesions were taken down. The band was unclasped and removed from around the stomach. It took over an hour to separate the gastro-gastric sutures, as well as separate the stomach from the underside of the liver to allow the stomach to resume normal anatomy. the tubing of the banding system was cut to allow the removal of the band from the 15mm port. At this time, the ligament of Treitz identified and followed down approximately 50 cm and the jejunum was transected. The distal segment of jejunum was then traced for approximately 75 cm and a stable [id number] jejunojejunostomy was performed. The common enterotomy was closed with 2 firings of the endoscopic stapler. The mesenteric defect was closed with running Surgidac suture. This anastomosis was found to be patent without kink, obstruction or bleeding. At this time, the patient was placed in steep reverse Trendelenburg position. A liver retractor was placed through the epigastric port to elevate the left lateral lobe of the liver. A small gastric pouch was formed with serial firings of gold loads on a laparoscopic stapler. The Thor limb was then brought in an antegastric antecolic fashion and secured with 2 stay sutures to the gastric pouch. After this, the enterotomies were made with Harmonic scalpel, and a [id number] stapled gastrojejunostomy was performed with a mechanical stapler. After this, a 2-layer running closure using absorbable V-lock suture were done, the first being mucosal approximation prior to completion of the first layer. Then I passed and an EGD scope beyond the anastomosis to act as a stent. The first layer was completed, the second was then performed. After this, the EGD was retracted slightly. A bowel clamp was placed in a proximal Thor limb. The anastomosis was submerged under saline. Via intraluminal EGD insufflation, there was noted be no bubbles in the saline indicating an airtight anastomosis. There was noted to be no obstruction or bleeding intraluminally in the pouch or the anastomosis. At this time, the scope was removed. The saline was aspirated. Vistaseal was placed over the anastomosis. All trocars were removed under direct visualization and the abdomen was then desufflated. A 19Fr round drain was placed in the LUQ and exited our of the left side. A TAP block was performed using a total of 60 mL 0.25% Marcaine along bilateral mid axillary lines starting at the subcostal margin at the level of the umbilicus. The 12mm trocar site was closed using POD and a Alfredo Edna device for fear that after surgery it become incarcerated. the port the palpation just above the umbilicus. The skin through a previous scar and the sub-q was dissected down the port with electro cautery. It was excised from the abdominal wall fascia. The pocket was closed with O-vicryl. The skin incisions were closed with 4-0 Monocryl followed by Dermabond dressings. Patient was awoken and taken to recovery in stable condition. All counts were correct.
[2021-11-07] MEDS ORDERED: fentaNYL 100 MCG/2 ML INJ IV ONE (13:57)
[2021-11-07] MEDS: ACETAMINOPHEN IV 1,000 MG/100 ML BOTTLE IV SCH ×2 (14:00→21:28)
[2021-11-07] MEDS: fentaNYL 100 MCG/2 ML INJ IV PRN ×2 (14:05→14:21)
[2021-11-07] MEDS: PANTOPRAZOLE 40 MG INJ IV SCH (16:23)
[2021-11-07] MEDS: metroNIDAZOLE/NS 500 MG/100 ML 500 MG/100 ML BAG IV SCH ×2 (16:31→22:04)
[2021-11-07] MEDS: ceFAZolin/NS 1 GM/50 ML 1 GM/50 ML BAG IV SCH (16:54)
[2021-11-07] MEDS ORDERED: HYDROmorphone 1 MG/1 ML INJ IV ONE (17:42)
[2021-11-07] MEDS: SIMETHICONE 80 MG CHEW TAB PO PRN (22:04)
[2021-11-07] MEDS: HYDROmorphone 0.5 MG/0.5 ML INJ IV PRN (22:05)
[2021-11-08] MEDS: ceFAZolin/NS 1 GM/50 ML 1 GM/50 ML BAG IV SCH ×2 (00:39→21:26)
[2021-11-08 05:04] LABS: Basophils % (Auto) 0.1 % (0.0-1.8); Hematocrit 36.3 % (30.3-42.9); Hemoglobin 11.7 gm/dl (10.1-14.3); Lymphocytes # (Auto) 0.6 K/mm3 (1.2-5.4); Lymphocytes % (Auto) 4.4 % (13.4-35.0); Mean Corpuscular HGB Conc 32 % (30-34); Mean Corpuscular Volume 77 fl (79-97); Monocytes # (Auto) 0.9 K/mm3 (0.0-0.8); Monocytes % (Auto) 6.6 % (0.0-7.3); Platelet Count 924 K/mm3 (140-440); Red Blood Count 4.74 M/mm3 (3.65-5.03); Red Cell Distribution Width 18.3 % (13.2-15.2)
[2021-11-08 05:26] LABS: Albumin 3.3 g/dL (3.9-5)
[2021-11-08] MEDS: metroNIDAZOLE/NS 500 MG/100 ML 500 MG/100 ML BAG IV SCH ×2 (06:26→18:19)
[2021-11-08] MEDS ORDERED: SODIUM CHLORIDE 0.9% 500 ML 500 ML IV SCH ×2 (07:30→10:00)
[2021-11-08 08:13] LABS: INR 1.07 (0.87-1.13)
[2021-11-08] MEDS: ACETAMINOPHEN IV 1,000 MG/100 ML BOTTLE IV SCH ×2 (08:19→18:19)
[2021-11-08] MEDS: PANTOPRAZOLE 40 MG INJ IV SCH (09:30)
[2021-11-08] MEDS: HYDROcodone/Acetaminophen 7.5-325MG-15ML ORAL LIQD PO PRN (09:32)
[2021-11-08] MEDS ORDERED: NON-FORMULARY EACH (Amlodipine Besylate [Norvasc] 2.5 MG Tablet) PO SCH (10:00)
[2021-11-08] MEDS ORDERED: LOSARTAN 50 MG TAB PO SCH (10:00)
[2021-11-08] MEDS ORDERED: METOCLOPRAMIDE 10 MG/2 ML INJ IV PRN (10:00)
[2021-11-08] MEDS ORDERED: ENOXAPARIN 40 MG/0.4 ML INJ SUB-Q SCH (10:00)
[2021-11-08] MEDS ORDERED: amLODIPine 5 MG TAB PO SCH (10:00)
[2021-11-08] MEDS ORDERED: NON-FORMULARY EACH (Losartan [Cozaar] 100 MG Tablet) PO SCH (10:00)
[2021-11-08] MEDS ORDERED: PHENOL 1.4% 177 ML BOTTLE MM PRN (10:00)
--- NOTE | 2021-11-08 10:24 | Consultation ---
History of Present Illness - Reason for Consult Consult date: 11/08/21 acute renal failure - History of Present Illness 51yr F s/p Laparoscopic Gastric Bypass with removal of prior Gastric banding & lysis of Adhesions. Renal consult for worsening BUN/Cr. Pt admits to prior Renal Insufficiency Past History Past Medical History: CAD (S/p [place] 2016), hypertension, other (Polycythemia Vera on Hydrea per Hematology) Past Surgical History: Other (Prior Gastric Banding) Social history: denies: smoking Medications and Allergies Allergies Allergy/AdvReac Type Severity Reaction Status Date / Time duloxetine [From Cymbalta] Allergy Nausea Verified 05/28/18 11:05 lisinopril AdvReac Cough Verified 02/27/15 07:14 Home Medications Medication Instructions Recorded Confirmed Last Taken Type Losartan [Cozaar] 100 mg PO QDAY 01/04/17 11/07/21 11/06/21 09:00 History Amlodipine Besylate [Norvasc] 2.5 mg PO DAILY 10/27/21 11/07/21 11/07/21 05:00 History Chlorthalidone [Thalitone] 25 mg PO QDAY 10/27/21 11/07/21 11/06/21 09:00 History HYDROcodone/APAP 7.5-325 [[place] 1 each PO Q8HR PRN 10/27/21 10/27/21 Unknown History 7.5/325] Omeprazole Magnesium [PriLOSEC Otc] 20 mg PO QDAY 10/27/21 11/07/21 11/06/21 09: 00 History Active Meds: Active Medications Hydrocodone Bitart/Acetaminophen (Hydrocodone/Acetaminophen 7.7-411gm-15vh Oral Liqd) 7.5 mg PO Q4H PRN PRN Reason: Pain, Moderate (4-6) Last Admin: 11/08/21 09:32 Dose: 7.5 mg Hydralazine HCl (Hydralazine 20 Mg/1 Ml Inj) 10 mg IV Q6H PRN PRN Reason: SBP > 150 Hydromorphone HCl (Hydromorphone 0.5 Mg/0.5 Ml Inj) 0.5 mg IV Q3H PRN PRN Reason: Pain , Severe (7-10) Last Admin: 11/07/21 22:05 Dose: 0.5 mg Lactated Ringer's (Lactated Ringers) 1,000 mls @ 150 mls/hr IV DIRECT JERONIMO Last Admin: 11/08/21 09:30 Dose: 150 mls/hr Sodium Chloride (Nacl 0.9% 500 Ml) 500 mls @ 999 mls/hr IV ONCE@0730 [facility] Stop: 11/08/21 12:30 Last Admin: 11/08/21 07:41 Dose: 999 mls/hr Sodium Chloride (Nacl 0.9% 500 Ml) 500 mls @ 999 mls/hr IV ONCE@1000 [facility] Stop: 11/08/21 17:00 Last Admin: 11/08/21 09:38 Dose: 999 mls/hr Metoclopramide HCl (Metoclopramide 10 Mg/2 Ml Inj) 5 mg IV Q6H PRN PRN Reason: Nausea And Vomiting Morphine Sulfate (Morphine 2 Mg/1 Ml Inj) 2 mg IV Q4H PRN PRN Reason: Pain, Moderate (4-6) Last Admin: 11/07/21 16:53 Dose: 2 mg Ondansetron HCl (Ondansetron 4 Mg/2 Ml Inj) 4 mg IV Q4H PRN PRN Reason: Nausea And Vomiting Pantoprazole Sodium (Pantoprazole 40 Mg Inj) 40 mg IV QDAY [facility] Last Admin: 11/08/21 09:30 Dose: 40 mg Phenol (Phenol 1.4% 177 Ml Bottle) 1 spray MM PRN PRN PRN Reason: Sore Throat Simethicone (Simethicone 80 Mg Chew Tab) 80 mg PO Q6H PRN PRN Reason: Gas pain Last Admin: 11/07/21 22:04 Dose: 80 mg Review of Systems Constitutional: no fever, no chills Cardiovascular: no chest pain, no orthopnea, no palpitations, no edema, no leg edema Respiratory: no cough, no shortness of breath Gastrointestinal: no abdominal pain, no nausea, no vomiting, no diarrhea, no constipation Exam - Vital Signs Vital signs: Vital Signs Temp Pulse Resp BP Pulse Ox 98.2 F 69 16 134/95 96 10/28/21 12:30 10/28/21 12:30 10/28/21 12:30 10/28/21 12:30 10/28/21 12:30 - General Appearance General appearance: well-developed EENT: PERRL, hearing intact Neck: Present: neck supple. Absent: JVD/HJR Respiratory: Clear to Ascultation Heart: regular, S1S2 Gastrointestinal: Present: other (Dressing in place) Integumentary: no rash, warm and dry Neurologic: no focal deficit, alert and oriented x3 Psychiatric: mood/affect appropriate Results - Lab Results 11/08/21 04:09 11/08/21 04:09 Most recent lab results Calcium 9.0 mg/dL (8.4-10.2) 11/08/21 04:09 Assessment and Plan CHASE - Likely Prerenal Azotemia 2/2 Hypoperfusion & Dehydration ?Acute on CKD currently stage3 Hypotension Plan: Spot Urine - UA/Micro, FENa, Prot/Cr ratio Hold Renal u/s for now until abd surgery & inflammation subside IVF & f/u labs Review meds & adjust as necessary, hold BP meds, avoid nephrotoxic meds Thanks very much, will f/u with you
--- NOTE | 2021-11-08 10:39 | Progress Note ---
Assessment and Plan POD#1 s/p laparoscopic removal of gastric banding and conversion to gastric bypass. Patient is afebrile and stable with systolic blood pressure in the low 100s. Slow oozing likely from staple line and contributed by the fact patient had not discontinued aspirin 7 days prior to surgery. Coags were checked and found to be within normal limits. We will bolus IV fluids and consult renal as her BUN and creatinine has elevated. Patient has chronic renal insufficiency. We will continue to closely monitor and repeat labs in a.m. Subjective Date of service: 11/08/21 Narrative: No acute events overnight. Patient says that she has right-sided abdominal pain and requesting pain medication. Patient denies any nausea or vomiting. Objective Vital Signs - 12hr 11/07/21 11/08/21 11/08/21 23:25 03:56 06:00 Temperature 98.7 F 98.6 F Pulse Rate 74 76 Respiratory 16 16 18 Rate Blood Pressure 87/42 94/54 O2 Sat by Pulse 94 91 100 Oximetry 11/08/21 11/08/21 08:15 10:00 Temperature 98.9 F Pulse Rate 61 Respiratory Rate Blood Pressure 100/57 O2 Sat by Pulse 96 96 Oximetry - General physical appearance well developed, no distress, moderate pain - Eyes PERRL - ENT no hearing loss - Abdomen soft, not guarding, other (incisions c/d/i, EDIE drain with sanguinous fluid, 300cc recorded overnight) - Labs 11/08/21 04:09 11/08/21 04:09 Diabetes panel 11/08/21 Range/Units 04:09 Sodium 137 (137-145) mmol/L Potassium 3.8 (3.6-5.0) mmol/L Chloride 101.0 (98-107) mmol/L Carbon Dioxide 24 (22-30) mmol/L BUN 47 H (7-17) mg/dL Creatinine 1.9 H (0.6-1.2) mg/dL Glucose 119 H (65-100) mg/dL Calcium 9.0 (8.4-10.2) mg/dL AST 51 H (5-40) units/L ALT 40 (7-56) units/L Alkaline Phosphatase 45 (35-129) units/L Total Protein 6.3 (6.3-8.2) g/dL Albumin 3.3 L (3.9-5) g/dL Calcium panel 11/08/21 Range/Units 04:09 Calcium 9.0 (8.4-10.2) mg/dL Albumin 3.3 L (3.9-5) g/dL Pituitary panel 11/08/21 Range/Units 04:09 Sodium 137 (137-145) mmol/L Potassium 3.8 (3.6-5.0) mmol/L Chloride 101.0 (98-107) mmol/L Carbon Dioxide 24 (22-30) mmol/L BUN 47 H (7-17) mg/dL Creatinine 1.9 H (0.6-1.2) mg/dL Glucose 119 H (65-100) mg/dL Calcium 9.0 (8.4-10.2) mg/dL Adrenal panel 11/08/21 Range/Units 04:09 Sodium 137 (137-145) mmol/L Potassium 3.8 (3.6-5.0) mmol/L Chloride 101.0 (98-107) mmol/L Carbon Dioxide 24 (22-30) mmol/L BUN 47 H (7-17) mg/dL Creatinine 1.9 H (0.6-1.2) mg/dL Glucose 119 H (65-100) mg/dL Calcium 9.0 (8.4-10.2) mg/dL Total Bilirubin 0.40 (0.1-1.2) mg/dL AST 51 H (5-40) units/L ALT 40 (7-56) units/L Alkaline Phosphatase 45 (35-129) units/L Total Protein 6.3 (6.3-8.2) g/dL Albumin 3.3 L (3.9-5) g/dL
[2021-11-08] MEDS ORDERED: SODIUM CHLORIDE 0.9% 500 ML 500 ML IV ONE (11:16)
[2021-11-08] MEDS ORDERED: SODIUM CHLORIDE 0.9% 1000 ML 1,000 ML IV ONE (12:27)
[2021-11-08] MEDS ORDERED: LIDOCAINE 2%/EPINEPHRINE 1:200,000 VIAL (20 ML) INFILTRATI ONE (13:27)
[2021-11-08] MEDS ORDERED: BUPIVACAINE/PF (0.25%) 2.5 MG/ML 30 ML VIAL INFILTRATI ONE ×2 (13:28→16:00)
[2021-11-08] MEDS ORDERED: propofoL 200 MG/20 ML VIAL IV ONE (13:33)
[2021-11-08] MEDS ORDERED: MIDAZOLAM 2 MG/2 ML INJ ONE (13:33)
[2021-11-08] MEDS ORDERED: fentaNYL 100 MCG/2 ML INJ ONE (13:33)
[2021-11-08] MEDS ORDERED: SODIUM CHLORIDE 0.9% 100 ML ONE (13:34)
[2021-11-08] MEDS ORDERED: PHENYLEPHRINE 10 MG/1 ML INJ SDV ONE (13:34)
[2021-11-08] MEDS ORDERED: KETAMINE/STERILE WATER 50 MG/ML SYRINGE ONE (13:34)
[2021-11-08 13:53] LABS: Bilirubin,Urine NEG (Negative); Blood,Urine NEG (Negative); Color,Urine Yellow (Yellow); Protein,Urine <15 mg/dL mg/dL (Negative); Urobilinogen,Urine < 2.0 mg/dL (<2.0)
[2021-11-08 14:02] LABS: Creatinine,Urine 96.9 mg/dL (0.1-20.0); Protein/Creatinine Ratio,Urine 0.1
[2021-11-08] MEDS ORDERED: ePHEDrine SULFATE 50 MG/1 ML INJ ONE (14:08)
[2021-11-08] MEDS ORDERED: ONDANSETRON 4 MG/2 ML INJ ONE (14:47)
[2021-11-08] MEDS ORDERED: dexAMETHasone 20 MG/5 ML VIAL ONE (14:47)
[2021-11-08] MEDS ORDERED: ROCURONIUM 50 MG/5 ML INJ IV ONE (14:56)
[2021-11-08] MEDS ORDERED: SUGAMMADEX SODIUM 200 MG/2 ML VIAL IV ONE (15:49)
[2021-11-08] MEDS ORDERED: SODIUM CHLORIDE 0.9% 1000 ML 1,000 ML ONE (15:57)
[2021-11-08] MEDS ORDERED: HYDROmorphone 0.5 MG/0.5 ML INJ ONE (15:57)
[2021-11-08] MEDS ORDERED: LIDOCAINE 2%/EPINEPHRINE 1:100,000 VIAL (20 ML) INFILTRATI ONE (16:00)
[2021-11-08] MEDS ORDERED: WATER FOR IRRIG STERILE 1,500 ML BOTTLE IR ONE (16:00)
[2021-11-08] MEDS ORDERED: SODIUM CHLORIDE 0.9% IRRIG SOLN 2000 ML IR ONE (16:00)
[2021-11-08] MEDS: fentaNYL 100 MCG/2 ML INJ IV PRN ×2 (16:40→17:10)
[2021-11-08] MEDS ORDERED: SIMETHICONE 40 MG/0.6 ML ORAL DROP 30ML PO ONE (17:18)
--- NOTE | 2021-11-08 17:22 | Anesthesia Day of Surgery ---
Anesthesia Day of Surgery - Day of Surgery Patient Examined: Yes Patient H&P Reviewed: Yes Patient is NPO: Yes
[2021-11-08 17:24] LABS: Hematocrit 37.8 % (30.3-42.9); Hemoglobin 11.8 gm/dl (10.1-14.3)
--- NOTE | 2021-11-08 17:28 | Post Anesthesia Evaluation ---
- Post Anesthesia Evaluation Patient Participated: Yes Airway Patent: Yes Stable Respiratory Function: Yes Nausea/Vomiting: No Temp > 96.8F: Yes Pain Manageable: Yes Adequeate Hydration: Yes Anesthesia Complications: No Other Comments: HD stable, no pressors. H/H stable at preop baseline.
--- NOTE | 2021-11-08 17:29 | Operative Report ---
Operative Report Operative Report: Date: November 08, 2021 Surgeon: Mariluz Hurley MD Yard Foreman surgeon:Theresa Maldonado DO Procedure:1. Diagnostic laparoscopy, 2. Evacuation of intra-abdominal hematoma Anesthesia:GETA Preop diagnosis: Symptomatic intra-abdominal postoperative bleed Postop diagnosis: Same as preop Indication: Patient is a 51-year-old female who had laparoscopic removal of gastric band and conversion to gastric bypass. Intraoperatively during that procedure she was noted to have generalized oozing. A drain was placed after surgery. Patient was noted to have significant bloody drainage from her EDIE drain as well as bouts of hypotension to his low as in the 50s systolic. It was decided to take the patient to the OR distal her abdomen. Patient signed informed consent. Details of procedure: Patient was brought in the OR suite and laid in supine position. Bilateral lower extremity SCDs were placed. General anesthesia was induced via successful endotracheal tube intubation. Patient abdomen was prepped and draped in sterile fashion. Going through her previous incisions her abdomen was insufflated to a pressure of 15 mmHg followed by Optiview technique a 5 mm trocar. When inside the abdominal cavity there was noted to be no gross intra-abdominal injury due to insertion of trochars. For working trochars were placed under direct visualization. There was noted to be significant clot throughout the abdomen most significantly in the left upper quadrant. A liver retractor was used to elevate the liver and the patient was placed in reverse in the liver position there was evacuation of clot in the left upper quadrant and a clot in the mid abdomen. There was no active bleeding appreciated requiring any ligation. There was a general ooze at the staple line in the left upper quadrant. Surgicel cloth and powder were placed in the left upper quadrant. Patient was also noted to have a small contained rectus sheath hematoma in the right mid abdomen through her previous 12 mm trocar, as well as small peritoneal hematomas at all of her previous trocar sites. Once the abdomen was irrigated and aspirated of all bloody fluid and all clot the drain left in the abdomen was repositioned back to left upper quadrant. The abdomen was desufflated after the 12 mm trocar space was closed with a Alfredo Mora device and a 0 Vicryl. All skin incisions were closed with 4 Monocryl followed by Dermabond. Lidocaine and Marcaine were placed at all incision sites. Patient remained stable throughout the entire case she was awoken taken to recovery stable condition. Complications: None immediate EBL: Minimal new blood from this procedure Findings: Intra-abdominal hematoma clot most concentrated in the left upper quadrant, slight oozing at the staple line and left upper quadrant. Overall general oozing from raw tissue surfaces. Small peritoneal hematomas at trocar sites Specimens: None
[2021-11-08] MEDS: HYDROmorphone 0.5 MG/0.5 ML INJ IV PRN (18:20)
[2021-11-09] MEDS: ACETAMINOPHEN IV 1,000 MG/100 ML BOTTLE IV SCH ×3 (01:02→13:00)
[2021-11-09] MEDS: metroNIDAZOLE/NS 500 MG/100 ML 500 MG/100 ML BAG IV SCH ×3 (03:17→18:43)
[2021-11-09] MEDS: ceFAZolin/NS 1 GM/50 ML 1 GM/50 ML BAG IV SCH ×3 (03:56→20:52)
[2021-11-09] MEDS: HYDROmorphone 0.5 MG/0.5 ML INJ IV PRN ×3 (04:39→21:42)
[2021-11-09 05:32] LABS: Basophils % (Auto) 0.4 % (0.0-1.8); Hemoglobin 9.9 gm/dl (10.1-14.3); Lymphocytes # (Auto) 0.8 K/mm3 (1.2-5.4); Lymphocytes % (Auto) 10.7 % (13.4-35.0); Mean Corpuscular HGB Conc 32 % (30-34); Mean Corpuscular Volume 77 fl (79-97); Monocytes # (Auto) 0.9 K/mm3 (0.0-0.8); Monocytes % (Auto) 12.9 % (0.0-7.3); Platelet Count 900 K/mm3 (140-440); Red Cell Distribution Width 18.9 % (13.2-15.2)
[2021-11-09 05:51] LABS: Albumin 3.2 g/dL (3.9-5); Calcium 7.8 mg/dL (8.4-10.2)
--- NOTE | 2021-11-09 09:18 | Post Anesthesia Evaluation ---
- Post Anesthesia Evaluation Patient Participated: Yes Airway Patent: Yes Stable Respiratory Function: Yes Nausea/Vomiting: No Temp > 96.8F: Yes Pain Manageable: Yes (some breakthrough pain) Adequeate Hydration: Yes Anesthesia Complications: No Block Receding Appropriately: Not Applicable Patient on Ventilator: No
[2021-11-09] MEDS: PANTOPRAZOLE 40 MG INJ IV SCH (10:20)
[2021-11-09] MEDS ORDERED: LOSARTAN 50 MG TAB PO SCH (11:00)
[2021-11-09] MEDS: amLODIPine 5 MG TAB PO SCH (11:05)
--- NOTE | 2021-11-09 11:14 | Progress Note ---
Assessment and Plan Postop day #2 status post removal of gastric band and conversion of gastric bypass. Postop day 1 status post diagnostic laparoscopy for takeback due to bleeding and hypotension. (No discrete bleeding to control, patient had generalized oozing at all surgical sites including trocar sites) hypotension has resolved patient is afebrile and stable with normalization of white blood cell count. Will remove Riley and encourage ambulation. Patient to start clear liquids. Acute on chronic renal insufficiency exacerbated by acute postsurgical blood loss. Minimal downtrend in BUN and creatinine compared to yesterday. Renal on board appreciate recommendations. We will continue to avoid nephrotoxic agents and IV hydration. We will recheck labs in AM. Subjective Date of service: 11/09/21 Narrative: No acute events overnight. Patient says she still having abdominal pain but overall she feels better compared to before with her surgery yesterday. Patient denies any nausea or vomiting. There has been much less drainage out of her EDIE drain compared to prior to yesterday's procedure. Objective Vital Signs - 12hr 11/09/21 11/09/21 11/09/21 03:00 05:13 08:08 Temperature 98.2 F 98.4 F Pulse Rate 76 85 Respiratory 18 16 Rate Blood Pressure 145/83 132/84 O2 Sat by Pulse 100 100 93 Oximetry - General physical appearance well developed, no distress, moderate pain - Eyes PERRL - ENT no hearing loss - Respiratory normal expansion, normal respiratory effort - Abdomen soft, other (Incisions clean dry and intact, tender to palpation appropriate most notably over mid right abdominal incision where she has a small contained rectus sheath hematoma, EDIE drain minimal serosanguineous output) - Labs 11/09/21 04:59 11/09/21 04:59 Diabetes panel 11/09/21 Range/Units 04:59 Sodium 143 (137-145) mmol/L Potassium 3.8 (3.6-5.0) mmol/L Chloride 109.8 H (98-107) mmol/L Carbon Dioxide 21 L (22-30) mmol/L BUN 39 H (7-17) mg/dL Creatinine 1.8 H (0.6-1.2) mg/dL Glucose 111 H (65-100) mg/dL Calcium 7.8 L (8.4-10.2) mg/dL AST 45 H (5-40) units/L ALT 39 (7-56) units/L Alkaline Phosphatase 37 (35-129) units/L Total Protein 6.4 (6.3-8.2) g/dL Albumin 3.2 L (3.9-5) g/dL Calcium panel 11/09/21 Range/Units 04:59 Calcium 7.8 L (8.4-10.2) mg/dL Albumin 3.2 L (3.9-5) g/dL Pituitary panel 11/09/21 Range/Units 04:59 Sodium 143 (137-145) mmol/L Potassium 3.8 (3.6-5.0) mmol/L Chloride 109.8 H (98-107) mmol/L Carbon Dioxide 21 L (22-30) mmol/L BUN 39 H (7-17) mg/dL Creatinine 1.8 H (0.6-1.2) mg/dL Glucose 111 H (65-100) mg/dL Calcium 7.8 L (8.4-10.2) mg/dL Adrenal panel 11/09/21 Range/Units 04:59 Sodium 143 (137-145) mmol/L Potassium 3.8 (3.6-5.0) mmol/L Chloride 109.8 H (98-107) mmol/L Carbon Dioxide 21 L (22-30) mmol/L BUN 39 H (7-17) mg/dL Creatinine 1.8 H (0.6-1.2) mg/dL Glucose 111 H (65-100) mg/dL Calcium 7.8 L (8.4-10.2) mg/dL Total Bilirubin 0.40 (0.1-1.2) mg/dL AST 45 H (5-40) units/L ALT 39 (7-56) units/L Alkaline Phosphatase 37 (35-129) units/L Total Protein 6.4 (6.3-8.2) g/dL Albumin 3.2 L (3.9-5) g/dL
--- NOTE | 2021-11-09 11:48 | Progress Note ---
Assessment and Plan 1. Acute kidney injury: Vasomotor CHASE superimposed on CKD. UA bland. ATN. IV fluids. Monitor renal function. Renal prognosis is guarded. Avoid nephrotoxic agents. Meds dosage based on GFR. 2. FEN: Monitor lytes and volume status. 3. S/p removal of gastric band and conversion of gastric bypass / S/p diagnostic laparoscopy due to bleeding and hypotension: Followed by General Surgery. 4. Hypertension: Adjust meds as needed. Monitor. 5. Morbid obesity. Subjective: Patient was seen and examined at the bedside. Examination: General appearance: well-developed, obese, appears stated age, no distress HEENT: ATNC, pupils equal, no icterus Neck: trachea midline Respiratory: Clear to Auscultation Cardiology: irregular, S1S2, no murmur Gastrointestinal: soft, normoactive bowel sounds, dressing noted Integumentary: no rash Neurologic: AO, able to move extremities Ext: no edema noted Subjective Date of service: 11/09/21 Objective - Vital Signs Vital signs: Vital Signs - 12hr 11/09/21 11/09/21 11/09/21 03:00 05:13 08:08 Temperature 98.2 F 98.4 F Pulse Rate 76 85 Respiratory 18 16 Rate Blood Pressure 145/83 132/84 O2 Sat by Pulse 100 100 93 Oximetry 11/09/21 11/09/21 11:05 11:06 Temperature Pulse Rate 85 85 Respiratory Rate Blood Pressure 132/84 132/84 O2 Sat by Pulse Oximetry - Lab 11/10/21 08:18 11/10/21 08:18 Most recent lab results Calcium 7.8 mg/dL (8.4-10.2) L 11/09/21 04:59 Urine Creatinine 96.9 mg/dL (0.1-20.0) H 11/08/21 10:54 Urine Sodium 30 mmol/L 11/08/21 10:54 Urine Total Protein 10 mg/dL (5-11.8) 11/08/21 10:54 Medications & Allergies - Medications Allergies/Adverse Reactions: Allergies duloxetine [From Cymbalta] Allergy (Verified 05/28/18 11:05) Nausea Penicillins Allergy (Verified 11/09/21 10:11) Shortness of Breath and hives lisinopril Adverse Reaction (Verified 02/27/15 07:14) Cough Home Medications: Home Medications Medication Instructions Recorded Confirmed Last Taken Type Losartan [Cozaar] 100 mg PO QDAY 01/04/17 11/07/21 11/06/21 09:00 History Amlodipine Besylate [Norvasc] 2.5 mg PO DAILY 10/27/21 11/07/21 11/07/21 05:00 History Chlorthalidone [Thalitone] 25 mg PO QDAY 10/27/21 11/07/21 11/06/21 09:00 History HYDROcodone/APAP 7.5-325 [[place] 1 each PO BID PRN 10/27/21 11/09/21 Unknown History 7.5/325] Aspirin [Aspirin BABY CHEW TAB] 81 mg PO QDAY 11/09/21 11/09/21 11/03/21 History Gabapentin [Neurontin] 600 mg PO TID 11/09/21 11/09/21 1 Week Ago History ~11/02/21 Hydroxyurea [Hydrea] 500 mg PO QDAY 11/09/21 11/09/21 Unknown History Omeprazole 40 mg PO QDAY 11/09/21 11/09/21 11/06/21 History Timolol 0.5% [Timoptic] 1 drop OU BID 11/09/21 11/09/21 Unknown History estradioL [Estradiol] 2 mg PO QDAY 11/09/21 11/09/21 11/06/21 History Active Medications: Generic Name Dose Route Start Last Admin Trade Name Freq PRN Reason Stop Dose Admin Hydrocodone Bitart/Acetaminophen 7.5 mg 11/07/21 13:18 11/08/21 09:32 Hydrocodone/Acetaminophen 7.0-199li-[id number] Oral Liqd PO 7.5 mg Q4H PRN Administration Pain, Moderate (4-6) Amlodipine Besylate 2.5 mg 11/09/21 11:00 11/09/21 11:05 Amlodipine 5 Mg Tab PO 2.5 mg QDAY JERONIMO Administration Enoxaparin Sodium 30 mg 11/10/21 10:00 Enoxaparin 30 Mg/0.3 Ml Inj SUB-Q QDAY JERONIMO Protocol Hydralazine HCl 10 mg 11/07/21 13:18 Hydralazine 20 Mg/1 Ml Inj IV Q6H PRN SBP > 150 Hydromorphone HCl 0.5 mg 11/07/21 18:28 11/09/21 04:39 Hydromorphone 0.5 Mg/0.5 Ml Inj IV 0.5 mg Q3H PRN Administration Pain , Severe (7-10) Sodium Chloride 1,000 mls @ 120 mls/hr 11/08/21 11:00 Nacl 0.9% 1000 Ml IV DIRECT JERONIMO Cefazolin Sodium 1 gm in 50 mls @ 100 mls/hr 11/08/21 19:00 11/09/21 11:05 Ancef/Ns 1 Gm/50 Ml IV 100 mls/hr Q8H JERONIMO Administration Protocol Metronidazole 500 mg in 100 mls @ 100 mls/hr 11/08/21 18:30 11/09/21 10:21 Flagyl 500 Mg/100 Ml IV 100 mls/hr Q8H JERONIMO Administration Protocol Acetaminophen 1,000 mg in 100 mls @ 400 mls/hr 11/08/21 18:00 11/09/21 06:44 Acetaminophen Iv IV 11/09/21 12:14 400 mls/hr Q6H JERONIMO Administration Losartan Potassium 100 mg 11/09/21 11:00 11/09/21 11:06 Losartan 50 Mg Tab PO 100 mg QDAY JERONIMO Administration Metoclopramide HCl 5 mg 11/08/21 10:00 11/08/21 18:19 Metoclopramide 10 Mg/2 Ml Inj IV 5 mg Q6H PRN Administration Nausea And Vomiting Morphine Sulfate 2 mg 11/07/21 13:18 11/07/21 16:53 Morphine 2 Mg/1 Ml Inj IV 2 mg Q4H PRN Administration Pain, Moderate (4-6) Ondansetron HCl 4 mg 11/07/21 13:18 Ondansetron 4 Mg/2 Ml Inj IV Q4H PRN Nausea And Vomiting Pantoprazole Sodium 40 mg 11/07/21 14:00 11/09/21 10:20 Pantoprazole 40 Mg Inj IV 40 mg QDAY JERONIMO Administration Phenol 1 spray 11/08/21 10:00 11/09/21 01:00 Phenol 1.4% 177 Ml Bottle MM 1 spray PRN PRN Administration Sore Throat Simethicone 80 mg 11/07/21 13:18 11/07/21 22:04 Simethicone 80 Mg Chew Tab PO 80 mg Q6H PRN Administration Gas pain
[2021-11-09] MEDS: SODIUM CHLORIDE 0.9% 1000 ML 1,000 ML IV SCH (21:48)
[2021-11-10] MEDS: HYDROcodone/Acetaminophen 7.5-325MG-15ML ORAL LIQD PO PRN ×2 (00:10→14:19)
[2021-11-10] MEDS: metroNIDAZOLE/NS 500 MG/100 ML 500 MG/100 ML BAG IV SCH ×3 (02:46→19:10)
[2021-11-10] MEDS: ceFAZolin/NS 1 GM/50 ML 1 GM/50 ML BAG IV SCH ×3 (03:54→19:00)
--- NOTE | 2021-11-10 08:20 | Progress Note ---
Assessment and Plan 1. Acute kidney injury: Vasomotor CHASE superimposed on CKD. UA bland. ATN. IV fluids. Monitor renal function. Creatinine level is slightly better. Avoid nephrotoxic agents. Meds dosage based on GFR. 2. FEN: Monitor lytes and volume status. 3. S/p removal of gastric band and conversion of gastric bypass / S/p diagnostic laparoscopy due to bleeding and hypotension: Followed by General Surgery. 4. Hypertension: Adjust meds as needed. Monitor. 5. Morbid obesity. Subjective: Patient was seen and examined at the bedside. Examination: General appearance: well-developed, obese, appears stated age, no distress HEENT: ATNC, pupils equal, no icterus Neck: trachea midline Respiratory: Clear to Auscultation Cardiology: regular, S1S2, no murmur Gastrointestinal: soft, normoactive bowel sounds, dressing noted Integumentary: no rash Neurologic: AO, able to move extremities Ext: no edema noted Subjective Date of service: 11/10/21 Objective - Vital Signs Vital signs: Vital Signs - 12hr 11/09/21 11/09/21 11/10/21 21:29 22:00 03:59 Temperature 98.9 F 98.8 F Pulse Rate 87 86 Respiratory 20 16 Rate Blood Pressure 126/66 Blood Pressure 103/67 [Right] O2 Sat by Pulse 100 100 95 Oximetry 11/10/21 11/10/21 04:00 07:57 Temperature 98.0 F Pulse Rate 92 H 88 Respiratory 18 Rate Blood Pressure Blood Pressure 147/89 [Right] O2 Sat by Pulse 95 90 Oximetry - Lab 11/10/21 08:18 11/10/21 08:18 Most recent lab results Calcium 7.8 mg/dL (8.4-10.2) L 11/09/21 04:59 Urine Creatinine 96.9 mg/dL (0.1-20.0) H 11/08/21 10:54 Urine Sodium 30 mmol/L 11/08/21 10:54 Urine Total Protein 10 mg/dL (5-11.8) 11/08/21 10:54 Medications & Allergies - Medications Allergies/Adverse Reactions: Allergies duloxetine [From Cymbalta] Allergy (Verified 05/28/18 11:05) Nausea Penicillins Allergy (Verified 11/09/21 10:11) Shortness of Breath and hives lisinopril Adverse Reaction (Verified 02/27/15 07:14) Cough Home Medications: Home Medications Medication Instructions Recorded Confirmed Last Taken Type Losartan [Cozaar] 100 mg PO QDAY 01/04/17 11/07/21 11/06/21 09:00 History Amlodipine Besylate [Norvasc] 2.5 mg PO DAILY 10/27/21 11/07/21 11/07/21 05:00 History Chlorthalidone [Thalitone] 25 mg PO QDAY 10/27/21 11/07/21 11/06/21 09:00 History HYDROcodone/APAP 7.5-325 [[place] 1 each PO BID PRN 10/27/21 11/09/21 Unknown History 7.5/325] Aspirin [Aspirin BABY CHEW TAB] 81 mg PO QDAY 11/09/21 11/09/21 11/03/21 History Gabapentin [Neurontin] 600 mg PO TID 11/09/21 11/09/21 1 Week Ago History ~11/02/21 Hydroxyurea [Hydrea] 500 mg PO QDAY 11/09/21 11/09/21 Unknown History Omeprazole 40 mg PO QDAY 11/09/21 11/09/21 11/06/21 History Timolol 0.5% [Timoptic] 1 drop OU BID 11/09/21 11/09/21 Unknown History estradioL [Estradiol] 2 mg PO QDAY 11/09/21 11/09/21 11/06/21 History Active Medications: Generic Name Dose Route Start Last Admin Trade Name Freq PRN Reason Stop Dose Admin Hydrocodone Bitart/Acetaminophen 7.5 mg 11/07/21 13:18 11/10/21 00:10 Hydrocodone/Acetaminophen [id number] Oral Liqd PO 7.5 mg Q4H PRN Administration Pain, Moderate (4-6) Amlodipine Besylate 2.5 mg 11/09/21 11:00 11/09/21 11:05 Amlodipine 5 Mg Tab PO 2.5 mg QDAY JERONIMO Administration Enoxaparin Sodium 30 mg 11/10/21 10:00 Enoxaparin 30 Mg/0.3 Ml Inj SUB-Q QDAY JERONIMO Protocol Hydralazine HCl 10 mg 11/07/21 13:18 Hydralazine 20 Mg/1 Ml Inj IV Q6H PRN SBP > 150 Hydromorphone HCl 0.5 mg 11/07/21 18:28 11/09/21 21:42 Hydromorphone 0.5 Mg/0.5 Ml Inj IV 0.5 mg Q3H PRN Administration Pain , Severe (7-10) Sodium Chloride 1,000 mls @ 120 mls/hr 11/08/21 11:00 11/09/21 21:48 Nacl 0.9% 1000 Ml IV 120 mls/hr DIRECT JERONIMO Administration Cefazolin Sodium 1 gm in 50 mls @ 100 mls/hr 11/08/21 19:00 11/10/21 03:54 Ancef/Ns 1 Gm/50 Ml IV 100 mls/hr Q8H JERONIMO Administration Protocol Metronidazole 500 mg in 100 mls @ 100 mls/hr 11/08/21 18:30 11/10/21 02:46 Flagyl 500 Mg/100 Ml IV 100 mls/hr Q8H JERONIMO Administration Protocol Metoclopramide HCl 5 mg 11/08/21 10:00 11/08/21 18:19 Metoclopramide 10 Mg/2 Ml Inj IV 5 mg Q6H PRN Administration Nausea And Vomiting Morphine Sulfate 2 mg 11/07/21 13:18 11/07/21 16:53 Morphine 2 Mg/1 Ml Inj IV 2 mg Q4H PRN Administration Pain, Moderate (4-6) Ondansetron HCl 4 mg 11/07/21 13:18 Ondansetron 4 Mg/2 Ml Inj IV Q4H PRN Nausea And Vomiting Pantoprazole Sodium 40 mg 11/07/21 14:00 11/09/21 10:20 Pantoprazole 40 Mg Inj IV 40 mg QDAY JERONIMO Administration Phenol 1 spray 11/08/21 10:00 11/09/21 01:00 Phenol 1.4% 177 Ml Bottle MM 1 spray PRN PRN Administration Sore Throat Simethicone 80 mg 11/07/21 13:18 11/07/21 22:04 Simethicone 80 Mg Chew Tab PO 80 mg Q6H PRN Administration Gas pain
[2021-11-10 08:39] LABS: Hematocrit 25.3 % (30.3-42.9); Hemoglobin 8.1 gm/dl (10.1-14.3); Mean Corpuscular HGB Conc 32 % (30-34); Mean Corpuscular Volume 78 fl (79-97); Platelet Count 880 K/mm3 (140-440); Red Blood Count 3.26 M/mm3 (3.65-5.03); Red Cell Distribution Width 18.5 % (13.2-15.2)
[2021-11-10 08:56] LABS: Calcium 7.7 mg/dL (8.4-10.2)
[2021-11-10] MEDS ORDERED: ENOXAPARIN 30 MG/0.3 ML INJ SUB-Q SCH (10:00)
[2021-11-10] MEDS: PANTOPRAZOLE 40 MG INJ IV SCH (10:55)
[2021-11-10] MEDS: LOSARTAN 50 MG TAB PO SCH (10:55)
[2021-11-10] MEDS: SODIUM CHLORIDE 0.9% 1000 ML 1,000 ML IV SCH (11:03)
[2021-11-10] MEDS: amLODIPine 5 MG TAB PO SCH (11:26)
--- NOTE | 2021-11-10 13:25 | Progress Note ---
Assessment and Plan Postop day #3 status post removal of gastric band and conversion of gastric bypass. Postop day #2 status post diagnostic laparoscopy for takeback due to bleeding and hypotension. (No discrete bleeding to control, patient had generalized oozing at all surgical sites including trocar sites) hypotension has resolved patient is afebrile and stable with normalization of white blood cell count. Acute on chronic renal insufficiency exacerbated by acute postsurgical blood loss. BUN and creatinine slowly improving. Patient has a history of a creatinine of 1.8 last year. Renal on board appreciate recommendations. We will continue to avoid nephrotoxic agents and IV hydration. We will recheck labs in AM. If okay with renal, BUN and creatinine not worsening with tomorrow's labs and H&H is stable will discharge tomorrow. Subjective Date of service: 11/10/21 Narrative: No acute events overnight. Patient says that she is starting to feel better. She is ambulating she is tolerating liquids. Patient's been able to use the restroom. Objective Vital Signs - 12hr 11/10/21 11/10/21 11/10/21 03:59 04:00 07:57 Temperature 98.8 F 98.0 F Pulse Rate 86 92 H 88 Respiratory 16 18 Rate Blood Pressure 126/66 Blood Pressure 147/89 [Right] O2 Sat by Pulse 95 95 90 Oximetry 11/10/21 11/10/21 10:55 12:13 Temperature 98.8 F Pulse Rate 14 L 95 H Respiratory 16 Rate Blood Pressure 145/72 Blood Pressure 140/66 [Right] O2 Sat by Pulse 96 Oximetry - General physical appearance well developed, no distress, moderate pain - Eyes PERRL - ENT no hearing loss - Respiratory normal expansion, normal respiratory effort - Abdomen soft, other (Appropriately tender to palpation, incisions clean dry and intact, EDIE drain with 30 cc recorded serosanguineous) - Labs 11/10/21 08:18 11/10/21 08:18 Diabetes panel 11/10/21 Range/Units 08:18 Sodium 142 (137-145) mmol/L Potassium 3.3 L (3.6-5.0) mmol/L Chloride 110.3 H (98-107) mmol/L Carbon Dioxide 23 (22-30) mmol/L BUN 28 H (7-17) mg/dL Creatinine 1.7 H (0.6-1.2) mg/dL Glucose 86 (65-100) mg/dL Calcium 7.7 L (8.4-10.2) mg/dL Calcium panel 11/10/21 Range/Units 08:18 Calcium 7.7 L (8.4-10.2) mg/dL Pituitary panel 11/10/21 Range/Units 08:18 Sodium 142 (137-145) mmol/L Potassium 3.3 L (3.6-5.0) mmol/L Chloride 110.3 H (98-107) mmol/L Carbon Dioxide 23 (22-30) mmol/L BUN 28 H (7-17) mg/dL Creatinine 1.7 H (0.6-1.2) mg/dL Glucose 86 (65-100) mg/dL Calcium 7.7 L (8.4-10.2) mg/dL Adrenal panel 11/10/21 Range/Units 08:18 Sodium 142 (137-145) mmol/L Potassium 3.3 L (3.6-5.0) mmol/L Chloride 110.3 H (98-107) mmol/L Carbon Dioxide 23 (22-30) mmol/L BUN 28 H (7-17) mg/dL Creatinine 1.7 H (0.6-1.2) mg/dL Glucose 86 (65-100) mg/dL Calcium 7.7 L (8.4-10.2) mg/dL
[2021-11-10] MEDS ORDERED: SODIUM CHLORIDE 0.9% 1000 ML 1,000 ML IV SCH (13:30)
[2021-11-10] MEDS: POTASSIUM CHLORIDE 10 MEQ 10 MEQ/100 ML BAG IV SCH ×3 (15:00→17:27)
[2021-11-11] MEDS ORDERED: FLUTICASONE PROPIONATE NASAL SPRAY 16 GM NS PRN (02:29)
[2021-11-11] MEDS: metroNIDAZOLE/NS 500 MG/100 ML 500 MG/100 ML BAG IV SCH ×3 (02:30→18:43)
[2021-11-11] MEDS: ceFAZolin/NS 1 GM/50 ML 1 GM/50 ML BAG IV SCH ×3 (03:00→18:43)
[2021-11-11 05:22] LABS: Hematocrit 22.4 % (30.3-42.9); Hemoglobin 7.4 gm/dl (10.1-14.3); Mean Corpuscular HGB Conc 33 % (30-34); Mean Corpuscular Volume 77 fl (79-97); Platelet Count 856 K/mm3 (140-440); Red Blood Count 2.91 M/mm3 (3.65-5.03); Red Cell Distribution Width 18.9 % (13.2-15.2)
[2021-11-11 05:30] LABS: Calcium 8.1 mg/dL (8.4-10.2)
[2021-11-11] MEDS ORDERED: POTASSIUM CHLORIDE ER 20 MEQ TAB PO SCH (07:30)
[2021-11-11] MEDS ORDERED: SODIUM CHLORIDE 0.9% 500 ML 500 ML IV ONE (09:27)
--- NOTE | 2021-11-11 09:38 | Progress Note ---
Assessment and Plan Postop day #4 status post removal of gastric band and conversion of gastric bypass. Postop day #3 status post diagnostic laparoscopy for takeback due to bleeding and hypotension. (No discrete bleeding to control, patient had generalized oozing at all surgical sites including trocar sites) hypotension has resolved patient is afebrile and stable with normalization of white blood cell count. Acute on chronic renal insufficiency exacerbated by acute postsurgical blood loss. BUN and creatinine back to baseline of pre-op 1.3. Patient has a history of a creatinine of 1.8 last year. Renal on board appreciate recommendations. We will continue to avoid nephrotoxic agents and IV hydration. Dizziness and palpitations likely due to downtrend and hemoglobin. 7.4 today, unlikely due to acute bleeding but more to dilutional effect. We will transfuse 1 unit PRBC. If H&H is stable and patient feels better will hopefully discharge tomorrow. Subjective Date of service: 11/11/21 Narrative: Pt says overall she feels ok but started having severe headaches and dizziness w hen standing as well as palpitations. She is tolerating liquids well and pain is better controlled. Denies any bloody bowel movement. Objective Vital Signs - 12hr 11/10/21 11/10/21 11/11/21 22:00 23:17 02:58 Temperature 98.1 F 98.2 F Pulse Rate 101 H 103 H Respiratory 16 16 Rate Blood Pressure 125/71 124/72 O2 Sat by Pulse 100 96 95 Oximetry 11/11/21 07:36 Temperature 98.4 F Pulse Rate 99 H Respiratory 18 Rate Blood Pressure 135/87 O2 Sat by Pulse 93 Oximetry - General physical appearance well developed, no distress, no pain - Eyes PERRL - ENT no hearing loss - Respiratory normal expansion, normal respiratory effort - Abdomen soft, other (Incisions clean dry and intact, appropriately tender to palpation, EDIE drain 30 to 40 cc measure last 24 hours serosanguineous) - Labs 11/11/21 04:19 11/11/21 04:19 Diabetes panel 11/11/21 Range/Units 04:19 Sodium 143 (137-145) mmol/L Potassium 3.4 L (3.6-5.0) mmol/L Chloride 110.3 H (98-107) mmol/L Carbon Dioxide 24 (22-30) mmol/L BUN 15 (7-17) mg/dL Creatinine 1.3 H (0.6-1.2) mg/dL Glucose 98 (65-100) mg/dL Calcium 8.1 L (8.4-10.2) mg/dL Calcium panel 11/11/21 Range/Units 04:19 Calcium 8.1 L (8.4-10.2) mg/dL Pituitary panel 11/11/21 Range/Units 04:19 Sodium 143 (137-145) mmol/L Potassium 3.4 L (3.6-5.0) mmol/L Chloride 110.3 H (98-107) mmol/L Carbon Dioxide 24 (22-30) mmol/L BUN 15 (7-17) mg/dL Creatinine 1.3 H (0.6-1.2) mg/dL Glucose 98 (65-100) mg/dL Calcium 8.1 L (8.4-10.2) mg/dL Adrenal panel 11/11/21 Range/Units 04:19 Sodium 143 (137-145) mmol/L Potassium 3.4 L (3.6-5.0) mmol/L Chloride 110.3 H (98-107) mmol/L Carbon Dioxide 24 (22-30) mmol/L BUN 15 (7-17) mg/dL Creatinine 1.3 H (0.6-1.2) mg/dL Glucose 98 (65-100) mg/dL Calcium 8.1 L (8.4-10.2) mg/dL
--- NOTE | 2021-11-11 09:48 | Progress Note ---
Assessment and Plan 1. Acute kidney injury: Vasomotor CHASE superimposed on CKD. UA bland. ATN. IV fluids. Monitor renal function. Creatinine level is improving. Avoid nephrotoxic agents. Meds dosage based on GFR. 2. FEN: Monitor lytes and volume status. 3. S/p removal of gastric band and conversion of gastric bypass / S/p diagnostic laparoscopy due to bleeding and hypotension: Followed by General Surgery. 4. Microcytic Anemia: PRBC today. Monitor. 5. Hypertension: Adjust meds as needed. Monitor. 6. Morbid obesity. Subjective: Patient was seen and examined at the bedside. Doing ok. Examination: General appearance: well-developed, obese, appears stated age, no distress HEENT: ATNC, pupils equal, no icterus Neck: trachea midline Respiratory: Clear to Auscultation Cardiology: regular, S1S2, no murmur Gastrointestinal: soft, normoactive bowel sounds, dressing noted Integumentary: no rash Neurologic: AO, able to move extremities Ext: no edema noted Subjective Date of service: 11/11/21 Objective - Vital Signs Vital signs: Vital Signs - 12hr 11/10/21 11/10/21 11/11/21 22:00 23:17 02:58 Temperature 98.1 F 98.2 F Pulse Rate 101 H 103 H Respiratory 16 16 Rate Blood Pressure 125/71 124/72 O2 Sat by Pulse 100 96 95 Oximetry 11/11/21 07:36 Temperature 98.4 F Pulse Rate 99 H Respiratory 18 Rate Blood Pressure 135/87 O2 Sat by Pulse 93 Oximetry - Lab 11/12/21 04:00 11/12/21 04:00 Most recent lab results Calcium 8.1 mg/dL (8.4-10.2) L 11/11/21 04:19 Urine Creatinine 96.9 mg/dL (0.1-20.0) H 11/08/21 10:54 Urine Sodium 30 mmol/L 11/08/21 10:54 Urine Total Protein 10 mg/dL (5-11.8) 11/08/21 10:54 Medications & Allergies - Medications Allergies/Adverse Reactions: Allergies duloxetine [From Cymbalta] Allergy (Verified 05/28/18 11:05) Nausea Penicillins Allergy (Verified 11/09/21 10:11) Shortness of Breath and hives lisinopril Adverse Reaction (Verified 02/27/15 07:14) Cough Home Medications: Home Medications Medication Instructions Recorded Confirmed Last Taken Type Losartan [Cozaar] 100 mg PO QDAY 01/04/17 11/07/21 11/06/21 09:00 History Amlodipine Besylate [Norvasc] 2.5 mg PO DAILY 10/27/21 11/07/21 11/07/21 05:00 History Chlorthalidone [Thalitone] 25 mg PO QDAY 10/27/21 11/07/21 11/06/21 09:00 History HYDROcodone/APAP 7.5-325 [[place] 1 each PO BID PRN 10/27/21 11/09/21 Unknown History 7.5/325] Aspirin [Aspirin BABY CHEW TAB] 81 mg PO QDAY 11/09/21 11/09/21 11/03/21 History Gabapentin [Neurontin] 600 mg PO TID 11/09/21 11/09/21 1 Week Ago History ~11/02/21 Hydroxyurea [Hydrea] 500 mg PO QDAY 11/09/21 11/09/21 Unknown History Omeprazole 40 mg PO QDAY 11/09/21 11/09/21 11/06/21 History Timolol 0.5% [Timoptic] 1 drop OU BID 11/09/21 11/09/21 Unknown History estradioL [Estradiol] 2 mg PO QDAY 11/09/21 11/09/21 11/06/21 History Active Medications: Generic Name Dose Route Start Last Admin Trade Name Freq PRN Reason Stop Dose Admin Hydrocodone Bitart/Acetaminophen 7.5 mg 11/07/21 13:18 11/10/21 14:19 Hydrocodone/Acetaminophen [id number] Oral Liqd PO 7.5 mg Q4H PRN Administration Pain, Moderate (4-6) Amlodipine Besylate 2.5 mg 11/09/21 11:00 11/10/21 11:26 Amlodipine 5 Mg Tab PO 2.5 mg QDAY JERONIMO Administration Fluticasone Propionate 100 mcg 11/11/21 02:29 11/11/21 04:16 Fluticasone Propionate Nasal [place] 16 Gm NS 100 mcg QDAY PRN Administration Congestion Hydralazine HCl 10 mg 11/07/21 13:18 Hydralazine 20 Mg/1 Ml Inj IV Q6H PRN SBP > 150 Hydromorphone HCl 0.5 mg 11/07/21 18:28 11/09/21 21:42 Hydromorphone 0.5 Mg/0.5 Ml Inj IV 0.5 mg Q3H PRN Administration Pain , Severe (7-10) Cefazolin Sodium 1 gm in 50 mls @ 100 mls/hr 11/08/21 19:00 11/11/21 03:00 Ancef/Ns 1 Gm/50 Ml IV 100 mls/hr Q8H JERONIMO Administration Protocol Metronidazole 500 mg in 100 mls @ 100 mls/hr 11/08/21 18:30 11/11/21 02:30 Flagyl 500 Mg/100 Ml IV 100 mls/hr Q8H JERONIMO Administration Protocol Losartan Potassium 100 mg 11/10/21 11:00 11/10/21 10:55 Losartan 50 Mg Tab PO 100 mg QDAY JERONIMO Administration Metoclopramide HCl 5 mg 11/08/21 10:00 11/08/21 18:19 Metoclopramide 10 Mg/2 Ml Inj IV 5 mg Q6H PRN Administration Nausea And Vomiting Morphine Sulfate 2 mg 11/07/21 13:18 11/07/21 16:53 Morphine 2 Mg/1 Ml Inj IV 2 mg Q4H PRN Administration Pain, Moderate (4-6) Ondansetron HCl 4 mg 11/07/21 13:18 Ondansetron 4 Mg/2 Ml Inj IV Q4H PRN Nausea And Vomiting Pantoprazole Sodium 40 mg 11/07/21 14:00 11/10/21 10:55 Pantoprazole 40 Mg Inj IV 40 mg QDAY JERONIMO Administration Phenol 1 spray 11/08/21 10:00 11/09/21 01:00 Phenol 1.4% 177 Ml Bottle MM 1 spray PRN PRN Administration Sore Throat Potassium Chloride 40 meq 11/11/21 07:30 Potassium Chloride Er 20 Meq Tab PO 11/11/21 11:30 ONCE@[id number] JERONIMO Simethicone 80 mg 11/07/21 13:18 11/07/21 22:04 Simethicone 80 Mg Chew Tab PO 80 mg Q6H PRN Administration Gas pain
[2021-11-11] MEDS ORDERED: ENOXAPARIN 40 MG/0.4 ML INJ SUB-Q SCH (10:00)
[2021-11-11] MEDS: LOSARTAN 50 MG TAB PO SCH (10:31)
[2021-11-11] MEDS: PANTOPRAZOLE 40 MG INJ IV SCH (10:31)
[2021-11-11] MEDS: amLODIPine 5 MG TAB PO SCH (10:31)
[2021-11-11] MEDS: HYDROmorphone 0.5 MG/0.5 ML INJ IV PRN ×2 (11:32→18:42)
[2021-11-11] MEDS ORDERED: ALBUTEROL 2.5 MG/3 ML NEBU IH ONE (15:01)
[2021-11-11] MEDS ORDERED: ALBUTEROL 2.5 MG/3 ML NEBU IH PRN (15:08)
[2021-11-12] MEDS: ceFAZolin/NS 1 GM/50 ML 1 GM/50 ML BAG IV SCH (02:26)
[2021-11-12] MEDS: metroNIDAZOLE/NS 500 MG/100 ML 500 MG/100 ML BAG IV SCH (02:29)
[2021-11-12 04:56] LABS: Hemoglobin 8.6 gm/dl (10.1-14.3); Mean Corpuscular HGB Conc 33 % (30-34); Mean Corpuscular Volume 78 fl (79-97); Platelet Count 905 K/mm3 (140-440); Red Blood Count 3.32 M/mm3 (3.65-5.03)
[2021-11-12 05:25] LABS: BUN/Creatinine Ratio 8; Blood Urea Nitrogen 9 mg/dL (7-17); Calcium 8.5 mg/dL (8.4-10.2); Hemolysis Index 0
[2021-11-12] MEDS: HYDROmorphone 0.5 MG/0.5 ML INJ IV PRN (06:31)
[2021-11-12] MEDS: SIMETHICONE 80 MG CHEW TAB PO PRN (06:36)
[2021-11-12 07:39] VITALS: BP 164/93
--- NOTE | 2021-11-12 09:38 | Progress Note ---
Assessment and Plan 1. Acute kidney injury: Vasomotor CHASE superimposed on CKD. UA bland. ATN. IV fluids. Monitor renal function. Creatinine level is improving. Avoid nephrotoxic agents. Meds dosage based on GFR. 2. FEN: Replete Mg and Phos. Monitor lytes and volume status. 3. S/p removal of gastric band and conversion of gastric bypass / S/p diagnostic laparoscopy due to bleeding and hypotension: Followed by General Surgery. 4. Microcytic Anemia: S/p PRBC 11/11. Monitor. 5. Hypertension: Adjust meds as needed. Monitor. 6. Morbid obesity. Subjective: Patient was seen and examined at the bedside. Doing ok. Examination: General appearance: well-developed, obese, appears stated age, no distress HEENT: ATNC, pupils equal, no icterus Neck: trachea midline Respiratory: Clear to Auscultation Cardiology: regular, S1S2, no murmur Gastrointestinal: soft, normoactive bowel sounds, dressing noted Integumentary: no rash Neurologic: AO, able to move extremities Ext: no edema noted Subjective Date of service: 11/12/21 Objective - Vital Signs Vital signs: Vital Signs - 12hr 11/11/21 11/11/21 11/12/21 22:00 23:39 00:23 Temperature 98.2 F Pulse Rate 89 Pulse Rate [ 92 H Anterior Bilateral Upper Lobe] Respiratory 19 Rate Respiratory 18 Rate [Anterior Bilateral Upper Lobe] Blood Pressure 143/99 O2 Sat by Pulse 98 95 Oximetry 11/12/21 07:33 Temperature 98.3 F Pulse Rate 89 Pulse Rate [ Anterior Bilateral Upper Lobe] Respiratory 18 Rate Respiratory Rate [Anterior Bilateral Upper Lobe] Blood Pressure 164/93 O2 Sat by Pulse 96 Oximetry - Lab 11/12/21 04:00 11/12/21 04:00 Most recent lab results Calcium 8.5 mg/dL (8.4-10.2) 11/12/21 04:00 Phosphorus 1.30 mg/dL (2.5-4.5) L 11/12/21 04:00 Magnesium 1.50 mg/dL (1.7-2.3) L 11/12/21 04:00 Urine Creatinine 96.9 mg/dL (0.1-20.0) H 11/08/21 10:54 Urine Sodium 30 mmol/L 11/08/21 10:54 Urine Total Protein 10 mg/dL (5-11.8) 11/08/21 10:54 Medications & Allergies - Medications Allergies/Adverse Reactions: Allergies duloxetine [From Cymbalta] Allergy (Verified 05/28/18 11:05) Nausea Penicillins Allergy (Verified 11/09/21 10:11) Shortness of Breath and hives lisinopril Adverse Reaction (Verified 02/27/15 07:14) Cough Home Medications: Home Medications Medication Instructions Recorded Confirmed Last Taken Type Losartan [Cozaar] 100 mg PO QDAY 01/04/17 11/07/21 11/06/21 09:00 History Amlodipine Besylate [Norvasc] 2.5 mg PO DAILY 10/27/21 11/07/21 11/07/21 05:00 History Chlorthalidone [Thalitone] 25 mg PO QDAY 10/27/21 11/07/21 11/06/21 09:00 History HYDROcodone/APAP 7.5-325 [[place] 1 each PO BID PRN 10/27/21 11/09/21 Unknown History 7.5/325] Aspirin [Aspirin BABY CHEW TAB] 81 mg PO QDAY 11/09/21 11/09/21 11/03/21 History Gabapentin [Neurontin] 600 mg PO TID 11/09/21 11/09/21 1 Week Ago History ~11/02/21 Hydroxyurea [Hydrea] 500 mg PO QDAY 11/09/21 11/09/21 Unknown History Omeprazole 40 mg PO QDAY 11/09/21 11/09/21 11/06/21 History Timolol 0.5% [Timoptic] 1 drop OU BID 11/09/21 11/09/21 Unknown History estradioL [Estradiol] 2 mg PO QDAY 11/09/21 11/09/21 11/06/21 History Active Medications: Generic Name Dose Route Start Last Admin Trade Name Freq PRN Reason Stop Dose Admin Hydrocodone Bitart/Acetaminophen 7.5 mg 11/07/21 13:18 11/10/21 14:19 Hydrocodone/Acetaminophen [id number] Oral Liqd PO 7.5 mg Q4H PRN Administration Pain, Moderate (4-6) Albuterol 2.5 mg 11/11/21 15:08 11/12/21 00:23 Albuterol 2.5 Mg/3 Ml Nebu IH 2.5 mg Q4H PRN Administration Wheezing Amlodipine Besylate 2.5 mg 11/09/21 11:00 11/11/21 10:31 Amlodipine 5 Mg Tab PO 2.5 mg QDAY JERONIMO Administration Fluticasone Propionate 100 mcg 11/11/21 02:29 11/11/21 04:16 Fluticasone Propionate Nasal [place] 16 Gm NS 100 mcg QDAY PRN Administration Congestion Hydralazine HCl 10 mg 11/07/21 13:18 Hydralazine 20 Mg/1 Ml Inj IV Q6H PRN SBP > 150 Hydromorphone HCl 0.5 mg 11/07/21 18:28 11/12/21 06:31 Hydromorphone 0.5 Mg/0.5 Ml Inj IV 0.5 mg Q3H PRN Administration Pain , Severe (7-10) Cefazolin Sodium 1 gm in 50 mls @ 100 mls/hr 11/08/21 19:00 11/12/21 02:26 Ancef/Ns 1 Gm/50 Ml IV 100 mls/hr Q8H JERONIMO Administration Protocol Metronidazole 500 mg in 100 mls @ 100 mls/hr 11/08/21 18:30 11/12/21 02:29 Flagyl 500 Mg/100 Ml IV 100 mls/hr Q8H JERONIMO Administration Protocol Potassium Phosphate 30 mmol/ 510 mls @ 85 mls/hr 11/12/21 07:50 Dextrose IV 11/12/21 13:49 ONCE ONE Losartan Potassium 100 mg 11/10/21 11:00 11/11/21 10:31 Losartan 50 Mg Tab PO 100 mg QDAY JERONIMO Administration Magnesium Oxide 400 mg 11/12/21 10:00 Magnesium Oxide 400 Mg Tab PO BID [facility] Metoclopramide HCl 5 mg 11/08/21 10:00 11/08/21 18:19 Metoclopramide 10 Mg/2 Ml Inj IV 5 mg Q6H PRN Administration Nausea And Vomiting Morphine Sulfate 2 mg 11/07/21 13:18 11/07/21 16:53 Morphine 2 Mg/1 Ml Inj IV 2 mg Q4H PRN Administration Pain, Moderate (4-6) Ondansetron HCl 4 mg 11/07/21 13:18 11/12/21 08:28 Ondansetron 4 Mg/2 Ml Inj IV 4 mg Q4H PRN Administration Nausea And Vomiting Pantoprazole Sodium 40 mg 11/12/21 10:00 Pantoprazole 40 Mg Tab PO DAILY JERONIMO Phenol 1 spray 11/08/21 10:00 11/09/21 01:00 Phenol 1.4% 177 Ml Bottle MM 1 spray PRN PRN Administration Sore Throat Simethicone 80 mg 11/07/21 13:18 11/12/21 06:36 Simethicone 80 Mg Chew Tab PO 80 mg Q6H PRN Administration Gas pain
[2021-11-12] MEDS ORDERED: MAGNESIUM OXIDE 400 MG TAB PO SCH (10:00)
[2021-11-12] MEDS ORDERED: PANTOPRAZOLE 40 MG TAB PO SCH (10:00)
--- NOTE | 2021-11-12 10:13 | Discharge Summary ---
Providers - Providers Date of Admission: 11/07/21 05:36 Date of discharge: 11/12/21 Attending physician: TREVOR RUIZ MD 11/07/21 13:18 Physical Therapy Evaluation and Treat [CONS] Routine Comment: Reason For Exam: post op bariatric surgery 11/08/21 08:36 Consult to Physician [CONS] Routine Comment: appreciate any recommendations Consulting Provider: SAE TATUM Physician Instructions: pt had bariatric surgery yesterday Reason For Exam: acute on chronic renal insuficiency 11/09/21 13:31 Physical Therapy Evaluation and Treat [CONS] Routine Comment: Reason For Exam: post op, get pt out of bed and moving Primary care physician: NORIS GUERRERO Hospitalization Reason for admission: s/p bariatric surgery Condition: Good Procedures: laparoscopic lap band removal and conversion to gastric bypass dx laparoscopy with evacuation of intra abdominal hematoma Hospital course: Patient had a relatively uneventful conversion of gastric band to gastric bypass. Because of generalized oozing from her surfaces a drain was placed and her Lovenox was held. Postop day 1 patient showed significant sanguinous drainage from her drain and had intermittent episodes of hypotension. It was decided to take your to the operating room for diagnostic laparoscopy. At the diagnostic laparoscopy there was no acute areas of bleeding to be addressed. There was noted to be continued generalized oozing from all cut surfaces, as well as peritoneal hematomas at all trocar sites. She has significant intra- abdominal hematoma that was evacuated and there was Surgicel placed along the staple line. Patient also has a history of chronic renal insufficiency of which her creatinine had become elevated. Over the next 3 days her creatinine began to decrease until it was at her baseline. She required 1 unit of PRBC on postop day 4 because she had a continuous slow trend down of her hemoglobin with mild tachycardia and dizziness that was likely due to dilution and not active bleeding. Her hemoglobin stabilized and equilibrated well after the 1 unit of blood as well as normalization of her heart rate. Patient was discharged on postop day #5 showing no gross clinical signs of leak or bleeding. She was tolerating liquids well with adequate pain control. Patient will follow-up in the office in a week and a half for follow-up. Disposition: 01 HOME / SELF CARE / HOMELESS Final Discharge Diagnosis (Prints w/discharge instructions): gerd, post op bleed, hx bariatric surgery Core Measure Documentation - Palliative Care Palliative Care/ Comfort Measures: Not Applicable - Core Measures Any of the following diagnoses?: none Exam - Constitutional Vitals: Temp Pulse Resp BP Pulse Ox 98.3 F 89 18 164/93 96 11/12/21 07:33 11/12/21 07:33 11/12/21 07:33 11/12/21 07:33 11/12/21 07:33 General appearance: Present: no acute distress, obese - EENT Eyes: Present: PERRL ENT: hearing intact - Respiratory Respiratory effort: normal - Cardiovascular Heart Sounds: Present: S1 & S2 - Extremities Extremities: no ischemia - Abdominal General gastrointestinal: Present: soft, non-tender, other (incisions c/d/i, joey drain with minimal drainage, removed) Plan Activity: advance as tolerated Diet: clear liquids, low carbohydrate Wound: open to air, keep clean and dry Durable Medical Equipment Needed Upon Discharge: [employer]ling Follow up with: NORIS GUERRERO MD [Primary Care Provider] - 7 Days
[2021-11-12] MEDS ORDERED: POTASSIUM PHOSPHATE 30 MMOL in DEXTROSE 5% IN WATER 500 ML IV ONE (11:00)
== END 2021-11-12 11:25 | disposition home or self-care (01) | DRG 326 ==
LOC: 3A 05:36 → 4A 11:18
PROVIDERS: ADMIT Surgery; ATTEND Surgery
PROC: 0D164ZA Bypass Stomach to Jejunum, Percutaneous Endoscopic Approach (ICD-10-PCS; principal; 2021-11-07)
PROC: 0DP64CZ Removal of Extraluminal Device from Stomach, Percutaneous Endoscopic Approach (ICD-10-PCS; 2021-11-07)
PROC: 0DN64ZZ Release Stomach, Percutaneous Endoscopic Approach (ICD-10-PCS; 2021-11-07)
PROC: 3E03317 Introduction of Other Thrombolytic into Peripheral Vein, Percutaneous Approach (ICD-10-PCS; 2021-11-07)
PROC: 0WCG4ZZ Extirpation of Matter from Peritoneal Cavity, Percutaneous Endoscopic Approach (ICD-10-PCS; 2021-11-07)
PROC: 30233N1 Transfusion of Nonautologous Red Blood Cells into Peripheral Vein, Percutaneous Approach (ICD-10-PCS; 2021-11-11)
DX: K21.9 Gastro-esophageal reflux disease without esophagitis (principal); N17.0 Acute kidney failure with tubular necrosis; E66.01 Morbid (severe) obesity due to excess calories; Z68.38 Body mass index [BMI] 38.0-38.9, adult; I25.10 Atherosclerotic heart disease of native coronary artery without angina pectoris; I25.2 Old myocardial infarction; N18.9 Chronic kidney disease, unspecified; I12.9 Hypertensive chronic kidney disease with stage 1 through stage 4 chronic kidney disease, or unspecified chronic kidney disease; I95.9 Hypotension, unspecified; D64.9 Anemia, unspecified; K91.840 Postprocedural hemorrhage of a digestive system organ or structure following a digestive system procedure; K95.89 Other complications of other bariatric procedure; Y83.2 Surgical operation with anastomosis, bypass or graft as the cause of abnormal reaction of the patient, or of later complication, without mention of misadventure at the time of the procedure
CPT/HCPCS: 36415; 80048; 80053; 81001; 82570; 83735; 84100; 84156; 84300; 85014; 85018; 85025; 85027; 85610; 86850; 86900; 86901; 86920; 88300; 94640; G0378; J3490; J7121; J7517; C9113; J0131; J0690; J1100; J1170; J1650; J2250; J2270; J2370; J2405; J2704; J2765; J3010; J3475; J3480; J7030; J7040; J7120; P9016